=== PATIENT | male | born 1935 | race Caucasian/White ===

== ENCOUNTER 2020-09-16 13:16 | Inpatient (IN) | payer MEDICARE ==
[2020-09-16] MEDS ORDERED: SODIUM CHLORIDE 0.9% 1,000 ML IV STA (13:34)
--- NOTE | 2020-09-16 13:36 | ED ---
General Adult HPI - General Chief complaint: Altered Mental Status Stated complaint: weakness Time Seen by Provider: 09/16/20 13:22 Source: patient, EMS, RN notes reviewed Mode of arrival: EMS Limitations: altered mental status, physical limitation - History of Present Illness Initial comments: Patient is a pleasant 84-year-old male presenting to the emergency department by EMS. Patient is a very poor historian and not quite clear why he is here. Yevgeniy jang denies any complaints at this time. Patient states he did have chest discomfort earlier and this why they sent him in when questioned several times. Patient states is gone at this time. Patient did admit to some abdominal discomfort during exam however states this was not the discomfort that he had earlier. Nursing report states that patient did have some weakness and headache. Patient denies any weakness or headache. Patient states he has chronic bilateral leg weakness from back problems that are chronic and unchanged. - Related Data Home Medications Medication Instructions Recorded Confirmed Aspirin EC [Ecotrin Low Dose] 81 mg PO DAILY 09/28/16 09/28/16 Divalproex ER [Depakote ER] 1,500 mg PO HS 09/28/16 09/28/16 FLUoxetine HCL [PROzac] 20 mg PO DAILY 09/28/16 09/28/16 Lovastatin [Mevacor] 40 mg PO HS 09/28/16 09/28/16 Metoprolol Tartrate [Lopressor] 12.5 mg PO DAILY 09/28/16 09/28/16 Multivitamin [Men's Multi-Vitamin] 1 tab PO DAILY 09/28/16 09/28/16 Naproxen 500 mg PO BID PRN 09/28/16 09/28/16 Allergies Allergy/AdvReac Type Severity Reaction Status Date / Time No Known Allergies Allergy Verified 09/28/16 15:46 Review of Systems ROS Statement: Those systems with pertinent positive or pertinent negative responses have been documented in the HPI. ROS Other: All systems not noted in ROS Statement are negative. Constitutional: Denies: fever Eyes: Denies: eye pain ENT: Denies: ear pain Respiratory: Denies: cough Cardiovascular: Reports: as per HPI, chest pain Endocrine: Denies: fatigue Gastrointestinal: Reports: as per HPI Genitourinary: Denies: dysuria Musculoskeletal: Reports: as per HPI Skin: Denies: rash Neurological: Reports: as per HPI Past Medical History Past Medical History: Chest Pain / Angina, Hyperlipidemia, Hypertension, Myocardial Infarction (NV), Mitral Valve Prolapse (MVP) History of Any Multi-Drug Resistant Organisms: None Reported Past Surgical History: Orthopedic Surgery Additional Past Surgical History / Comment(s): splenectomy, knee replacement Past Psychological History: No Psychological Hx Reported Past Alcohol Use History: None Reported Past Drug Use History: None Reported General Exam Limitations: altered mental status, physical limitation General appearance: alert, in no apparent distress Head exam: Present: atraumatic Eye exam: Present: normal appearance, PERRL, EOMI ENT exam: Present: normal oropharynx Neck exam: Present: normal inspection Respiratory exam: Present: normal lung sounds bilaterally Cardiovascular Exam: Present: regular rate, irregular rhythm Expanded Peripheral pulses: 2+: Radial (R), Radial (L), Dorsalis Pedis (R), Dorsalis Pedis (L) GI/Abdominal exam: Present: soft, tenderness (Moderate left upper and left lower quadrant tenderness), normal bowel sounds. Absent: distended, guarding, rebound, rigid, pulsatile mass Extremities exam: Present: normal inspection Neurological exam: Present: alert Expanded Neurological exam: Present: protecting the airway Speech: Present: fluid speech Motor strength exam: RUE: 5, LUE: 5, RLE: 3 (States chronic, good strength with plantar and dorsiflexion of the feet), LLE: 3 (States chronic, good strength with plantar and dorsiflexion of the feet) Eye Response: (4) open spontaneously Motor Response: (6) obeys commands Verbal Response: (4) confused conversation Psychiatric exam: Present: normal affect, normal mood Skin exam: Present: normal color Course Vital Signs 09/16/20 09/16/20 09/16/20 13:19 13:31 15:34 Temperature 98.3 F Pulse Rate 61 72 72 Respiratory 18 18 Rate Blood Pressure 128/75 131/85 O2 Sat by Pulse 92 L 97 96 Oximetry EKG Findings - EKG Comments: EKG Findings:: A. fib with rate of 71. QRS 110. QT 380. QTC 412. Normal axis. Normal QRS. No acute ST change. Medical Decision Making - Medical Decision Making Patient reevaluated and updated. Case discussed with Dr. Yeh, who will admit covering for Dr. Patton - Lab Data Result diagrams: 09/16/20 13:43 09/16/20 13:43 Lab Results 09/16/20 09/16/20 09/16/20 Range/Units 13:43 13:43 13:43 WBC 8.0 (3.8-10.6) k/uL RBC 4.32 (4.30-5.90) m/uL Hgb 13.3 (13.0-17.5) gm/dL Hct 41.2 (39.0-53.0) % MCV 95.5 (80.0-100.0) fL MCH 30.8 (25.0-35.0) pg MCHC 32.3 (31.0-37.0) g/dL RDW 15.1 (11.5-15.5) % Plt Count 348 (150-450) k/uL MPV 7.1 Neutrophils % 73 % Lymphocytes % 14 % Monocytes % 9 % Eosinophils % 1 % Basophils % 1 % Neutrophils # 5.8 (1.3-7.7) k/uL Lymphocytes # 1.1 (1.0-4.8) k/uL Monocytes # 0.7 (0-1.0) k/uL Eosinophils # 0.1 (0-0.7) k/uL Basophils # 0.1 (0-0.2) k/uL PT 12.7 H (9.0-12.0) sec INR 1.3 H (<1.2) APTT 22.4 (22.0-30.0) sec Sodium 131 L (137-145) mmol/L Potassium 5.9 H (3.5-5.1) mmol/L Chloride 98 (98-107) mmol/L Carbon Dioxide 27 (22-30) mmol/L Anion Gap 6 mmol/L BUN 58 H (9-20) mg/dL Creatinine 1.63 H (0.66-1.25) mg/dL Est GFR (CKD-EPI)AfAm 44 (>60 ml/min/1.73 sqM) Est GFR (CKD-EPI)NonAf 38 (>60 ml/min/1.73 sqM) Glucose 104 H (74-99) mg/dL Calcium 9.6 (8.4-10.2) mg/dL Total Bilirubin 1.0 (0.2-1.3) mg/dL AST 46 (17-59) U/L ALT 22 (4-49) U/L Alkaline Phosphatase 88 (38-126) U/L Creatine Kinase 319 H (55-170) U/L Troponin I (0.000-0.034) ng/mL Total Protein 7.7 (6.3-8.2) g/dL Albumin 3.7 (3.5-5.0) g/dL Amylase 67 (30-110) U/L Lipase 146 (23-300) U/L Urine Color Urine Appearance (Clear) Urine pH (5.0-8.0) Ur Specific [place] (1.001-1.035) Urine Protein (Negative) Urine Glucose (UA) (Negative) Urine Ketones (Negative) Urine Blood (Negative) Urine Nitrite (Negative) Urine Bilirubin (Negative) Urine Urobilinogen (<2.0) mg/dL Ur Leukocyte Esterase (Negative) Urine WBC (0-5) /hpf Urine Bacteria (None) /hpf Urine Mucus (None) /hpf Digoxin ng/mL Valproic Acid ug/mL 09/16/20 09/16/20 09/16/20 Range/Units 13:43 13:43 13:52 WBC (3.8-10.6) k/uL RBC (4.30-5.90) m/uL Hgb (13.0-17.5) gm/dL Hct (39.0-53.0) % MCV (80.0-100.0) fL MCH (25.0-35.0) pg MCHC (31.0-37.0) g/dL RDW (11.5-15.5) % Plt Count (150-450) k/uL MPV Neutrophils % % Lymphocytes % % Monocytes % % Eosinophils % % Basophils % % Neutrophils # (1.3-7.7) k/uL Lymphocytes # (1.0-4.8) k/uL Monocytes # (0-1.0) k/uL Eosinophils # (0-0.7) k/uL Basophils # (0-0.2) k/uL PT (9.0-12.0) sec INR (<1.2) APTT (22.0-30.0) sec Sodium (137-145) mmol/L Potassium (3.5-5.1) mmol/L Chloride (98-107) mmol/L Carbon Dioxide (22-30) mmol/L Anion Gap mmol/L BUN (9-20) mg/dL Creatinine (0.66-1.25) mg/dL Est GFR (CKD-EPI)AfAm (>60 ml/min/1.73 sqM) Est GFR (CKD-EPI)NonAf (>60 ml/min/1.73 sqM) Glucose (74-99) mg/dL Calcium (8.4-10.2) mg/dL Total Bilirubin (0.2-1.3) mg/dL AST (17-59) U/L ALT (4-49) U/L Alkaline Phosphatase (38-126) U/L Creatine Kinase (55-170) U/L Troponin I 0.022 (0.000-0.034) ng/mL Total Protein (6.3-8.2) g/dL Albumin (3.5-5.0) g/dL Amylase (30-110) U/L Lipase (23-300) U/L Urine Color Light Yellow Urine Appearance Clear (Clear) Urine pH 6.0 (5.0-8.0) Ur Specific [place] 1.010 (1.001-1.035) Urine Protein Negative (Negative) Urine Glucose (UA) Negative (Negative) Urine Ketones Negative (Negative) Urine Blood Negative (Negative) Urine Nitrite Negative (Negative) Urine Bilirubin Negative (Negative) Urine Urobilinogen <2.0 (<2.0) mg/dL Ur Leukocyte Esterase Small H (Negative) Urine WBC 6 H (0-5) /hpf Urine Bacteria Rare H (None) /hpf Urine Mucus Rare H (None) /hpf Digoxin 1.5 ng/mL Valproic Acid <10.0 ug/mL - Radiology Data Radiology results: report reviewed (Computed tomography scan abdomen and pelvis does show colonic and rectal fecal stasis. Nonobstructive pattern. Her catheter with concentric wall thickening. Otherwise no acute findings. 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 CT brain shows) Disposition Clinical Impression: Dehydration, Chest pain Disposition: ADMITTED IP TO THIS HOSP Is patient prescribed a controlled substance at d/c from ED?: No Referrals: Cain Patton MD [Primary Care Provider] - 1-2 days Decision Time: 16:04
[2020-09-16 13:58] LABS: Basophils # (A) 0.1 k/uL (0-0.2); Basophils % (A) 1 %; Eosinophils # (A) 0.1 k/uL (0-0.7); Eosinophils % (A) 1 %; HCT 41.2 % (39.0-53.0); HGB 13.3 gm/dL (13.0-17.5); Lymphocytes # (A) 1.1 k/uL (1.0-4.8); Lymphocytes % (A) 14 %; MCH 30.8 pg (25.0-35.0); MCHC 32.3 g/dL (31.0-37.0); MCV 95.5 fL (80.0-100.0); Mean Platelet Volume 7.1; Monocytes # (A) 0.7 k/uL (0-1.0); Monocytes % (A) 9 %; Neutrophils # (A) 5.8 k/uL (1.3-7.7); Neutrophils % (A) 73 %; Platelet Count 348 k/uL (150-450); RBC 4.32 m/uL (4.30-5.90); RDW 15.1 % (11.5-15.5)
[2020-09-16 14:10] LABS: Albumin 3.7 g/dL (3.5-5.0); Calcium 9.6 mg/dL (8.4-10.2); INR 1.3 (<1.2); Partial Thromboplastin Time 22.4 sec (22.0-30.0); Prothrombin Time 12.7 sec (9.0-12.0); Total Protein 7.7 g/dL (6.3-8.2)
[2020-09-16 14:13] LABS: Potassium 5.9 mmol/L (3.5-5.1)
[2020-09-16 14:14] LABS: Appearance,Urine Clear (Clear); Bacteria,Urine Rare /hpf; Bilirubin,Urine Negative (Negative); Blood,Urine Negative (Negative); Color,Urine Light Yellow; Glucose,Urine (UA) Negative (Negative); Ketones,Urine Negative (Negative); Leukocyte Esterase,Urine Small (Negative); Mucus,Urine Rare /hpf; Nitrite,Urine Negative (Negative); Protein,Urine Negative (Negative); Urobilinogen,Urine <2.0 mg/dL (<2.0); WBC,Urine 6 /hpf (0-5)
[2020-09-16 14:41] LABS: Digoxin 1.5 ng/mL
[2020-09-16 14:42] LABS: Valproic Acid (Depakene) <10.0 ug/mL
--- NOTE | 2020-09-16 15:21 | CT ---
EXAMINATION TYPE: CT brain wo con DATE OF EXAM: 09/16/2020 HISTORY: Weakness and pain. CT DLP: 1231.4 mGycm. Automated Exposure Control for Dose Reduction was Utilized. TECHNIQUE: CT scan of the head is performed without contrast. COMPARISON: None. FINDINGS: There is no acute intracranial hemorrhage or midline shift identified. There is diffuse v entricular and sulcal prominence consistent with diffuse age-related cerebral atrophy. There is low- attenuation in the periventricular white matter consistent with chronic small vessel ischemic change. Nasal septum deviated to right of midline. Evidence of prior right-sided paranasal sinus surgery as retention cysts or polyps with mucosal thickening in ethmoid sinuses bilaterally. Vascular calcificat ion distal internal carotid arteries. IMPRESSION: No acute intracranial hemorrhage or midline shift. There is moderate to borderline adva nced diffuse age-related cerebral atrophy and mild to moderate chronic small vessel ischemic change n oted.
--- NOTE | 2020-09-16 15:35 | CT ---
EXAMINATION TYPE: CT abdomen pelvis wo con DATE OF EXAM: 09/16/2020 HISTORY: Weakness and pain. CT DLP: 618.2 mGycm. Automated Exposure Control for Dose Reduction was Utilized. TECHNIQUE: CT scan of the abdomen and pelvis is performed without oral or IV contrast. COMPARISON: CT abdomen and pelvis September 28, 2016 FINDINGS: Within the limitations of a non-contrast study, the following observations are made. LUNG BASES: Moderate to severe left atrial dilatation is present. Calcification or surgical change at level of mitral valve redemonstrated. Mild cardiomegaly. Coronary artery calcification again seen. P ectus deformity redemonstrated. LIVER/GB: Punctate 1 to 2 mm calcifications centrally in the liver on coronal image 49 noted unchange d from prior study. PANCREAS: No significant abnormality is seen. SPLEEN: Normal spleen not seen. Stable small partially calcified left upper quadrant lesion image 22 could reflect residual splenosis. ADRENALS: No significant abnormality is seen. KIDNEYS: No renal stones or hydronephrosis is present bilaterally. Suprapubic catheter noted in bladd er with moderate concentric wall thickening on current study. BOWEL: Moderate amount of fecal prominence in the right and transverse colon. Prominent diverticula i n the left and sigmoid colon. No CT evidence for acute diverticulitis. No suspicious small or large b owel dilatation. Moderate focal fecal prominence in the rectum. GENITAL ORGANS: Prostate gland upper limits of normal in size. LYMPH NODES: No greater than 1cm abdominal or pelvic lymph nodes are appreciated. OSSEOUS STRUCTURES: Moderate axial joint space loss and spurring of both hips. Multilevel interspace narrowing and spurring greatest at L2-L3 level left aspect with endplate sclerosis. OTHER: Atherosclerotic and aneurysmal aorta extending into iliac branch vessels. Interval progression . AAA measures up to 4.7 cm AP diameter image 46 up from 3.7 cm prior study. 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 Additional ectasia and aneurysmal change of the left-sided iliac artery with distal left common i liac artery measuring up to 3.0 cm transverse image 62. Stable small fat-containing bilateral inguinal hernia. IMPRESSION: Moderate proximal colonic and rectal fecal stasis. Overall nonobstructive bowel gas patte rn. New suprapubic Her catheter with moderate concentric wall thickening and bladder, cannot exclud e underlying acute sinusitis, correlate clinically. Otherwise no acute findings clearly seen. 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
[2020-09-16] MEDS ORDERED: NITROGLYCERIN SL TABS 0.4 MG TAB SUBLINGUAL PRN (16:04)
[2020-09-16] MEDS ORDERED: ASPIRIN 81 MG PO STA (16:04)
--- NOTE | 2020-09-16 16:59 | XR ---
EXAMINATION TYPE: XR chest 2V DATE OF EXAM: 09/16/2020 COMPARISON: 09/28/2016 HISTORY: Chest pain TECHNIQUE: FINDINGS: Heart is top normal in size. There is some diffuse bilateral pneumonia. This is predominant ly interstitial pneumonia. There are chest leads. There is no heart failure. There are no hilar rafael s. Mediastinum is normal. Bony thorax is intact. IMPRESSION: There is new bilateral diffuse pneumonia compared to old exam.
[2020-09-16] MEDS ORDERED: ACETAMINOPHEN TAB 500 MG TAB PO PRN (21:05)
[2020-09-16] MEDS ORDERED: MELATONIN 5 MG TABLET PO SCH (21:15)
[2020-09-16] MEDS ORDERED: WARFARIN 1 MG TAB PO SCH (21:15)
[2020-09-16] MEDS ORDERED: WARFARIN 2 MG TAB PO ONE (22:00)
[2020-09-16] MEDS: CYCLOBENZAPRINE 10 MG TAB PO SCH (22:30)
[2020-09-16] MEDS: LATANOPROST 0.005% OPHTH DROPS 2.5 ML BTL BOTH EYES SCH (22:30)
[2020-09-17 06:30] LABS: African American GFR (CKD) 70 (>60 ml/min/1.73 sqM); Anion Gap 3 mmol/L; Blood Urea Nitrogen 37 mg/dL (9-20); Calcium 9.4 mg/dL (8.4-10.2); Carbon Dioxide 31 mmol/L (22-30); Chloride 100 mmol/L (98-107); Cholesterol 208 mg/dL (<200); Glucose 94 mg/dL (74-99); HDL Cholesterol 39 mg/dL (40-60); LDL Cholesterol,Calculated 155 mg/dL (0-99); Non-African American GFR(CKD) 60 (>60 ml/min/1.73 sqM); Potassium 5.2 mmol/L (3.5-5.1); Sodium 134 mmol/L (137-145); Triglycerides 68 mg/dL (<150)
[2020-09-17] MEDS ORDERED: POTASSIUM CHLORIDE ER 20 MEQ TAB.ER PO SCH (07:30)
[2020-09-17] MEDS: CYCLOBENZAPRINE 10 MG TAB PO SCH ×3 (08:45→20:44)
[2020-09-17] MEDS: METOPROLOL TARTRATE 25 MG TAB PO SCH ×2 (08:47→20:44)
[2020-09-17] MEDS: MULTIVITAMINS, THERA 1 EACH TAB PO SCH (08:48)
[2020-09-17] MEDS: MAGNESIUM OXIDE 400 MG TAB PO SCH (08:48)
[2020-09-17] MEDS: PANTOPRAZOLE 40 MG TABLET PO SCH ×2 (08:49→20:44)
[2020-09-17] MEDS: TROSPIUM CHLORIDE 20 MG TABLET PO SCH ×2 (08:50→20:44)
[2020-09-17] MEDS: FLUoxetine HCL 10 MG CAP PO SCH ×2 (08:51→20:44)
[2020-09-17] MEDS: DILTIAZEM CD 180 MG CAP.ER.24H PO SCH (08:52)
[2020-09-17] MEDS ORDERED: FUROSEMIDE 40 MG TAB PO SCH (09:00)
[2020-09-17] MEDS ORDERED: MELOXICAM 7.5 MG TAB PO SCH (09:00)
[2020-09-17] MEDS ORDERED: ASPIRIN 325 MG TAB PO SCH (09:00)
[2020-09-17] MEDS ORDERED: lisinopriL 20 MG TAB PO SCH (09:00)
[2020-09-17] MEDS ORDERED: NON FORMULARY DRUG (Aspirin Ec 81 MG Tablet.Dr) PO SCH (09:00)
[2020-09-17 09:26] LABS: INR 1.28 (0.90-1.11); Prothrombin Time 13.6 sec (9.9-11.9)
[2020-09-17] MEDS: BUDESONIDE 1 MG/2 ML NEBU INHALATION SCH ×2 (10:10→21:40)
--- NOTE | 2020-09-17 10:43 | P.CRDCN ---
History of Present Illness History of present illness: HISTORY OF PRESENTING ILLNESS This is a pleasant 84-year-old male past medical history significant for abdominal and iliac aneurysms, dyslipidemia, hypertension, noncritical coronary artery disease and paroxysmal atrial fibrillation on Coumadin for thromboembolic protection. He follows in the office with Dr. Pulliam. We have been asked to see in consultation for chest pain. The patient himself is seen and examined sitting up on the edge of the bed in no acute distress. He is complaining of lower back discomfort. He is having memory lapses and is unable to tell his he came to the hospital. He does give brief history of being recently hospitalized however he is unsure of the year or why exactly he is at the hospital. We spoke with his Kate on the telephone along with his daughter who was over at the time. They state that he was discharged from [facility] on September 03 after being treated for pneumonia, A. fib and respiratory distress. They state he was intubated. Upon discharge he was given home oxygen and according to the family seemed to normal mentation for a couple of days. The daughter states after being home for a couple of days he started to seem more and more confused. In the last 48 hours he has not been eating or drinking and was becoming stubborn and obstinate with his family. The also states he has been complaining of a headache and clutching the right side of his head. She also feels as though he is overall generally weak but seemed to be more weak on the right side and she was having to help him walk. Visiting nurse was at the house and recommended hospitalization. EKG on arrival revealed atrial fibrillation with controlled ventricular rate. Chest x-ray reveals bilateral diffuse pneumonia. CT of the abdomen and pelvis reveals moderate proximal colonic and rectal fecal stasis, Her catheter with moderate concentric bladder wall thickening and worsening aneurysmal and atherosclerotic abdominal aorta extending into the iliac arteries bilaterally. CT of the brain is negative for acute intracranial hemorrhage or midline shift with moderate diffuse age-related cerebral atrophy and mild to moderate chronic small vessel ischemic changes. Laboratory data reviewed, CBC unremarkable, INR 1.2, sodium 134, potassium 5.2, creatinine on admission 1.63 down to 1.12 this morning, troponin negative 3, LDL 155 and HDL 39. Current daily cardiac medications include lisinopril 20 mg daily, digoxin 125 g daily, Lasix 40 mg twice a day, diltiazem 180 mg daily, Lopressor 25 mg twice a day, aspirin 81 mg daily, warfarin and daily potassium supplementation. Most recent echocardiogram o btained in the office November 2019 revealed impaired LV systolic function with ejection fraction 40-45%, mild concentric LVH, mildly dilated right ventricle, severely dilated left atrium, aortic valve is calcified with thickened leaflets, moderate to severe MR, severe mitral annual calcification and moderately thickened mitral leaflets. Telemetry tracings indicate intermittent episodes of rapid ventricular rates up to 150, currently 97. REVIEW OF SYSTEMS At the time of my exam: CONSTITUTIONAL: Denies fever or chills. CARDIOVASCULAR: Denies chest pain, shortness of breath, orthopnea, PND or palpitations. RESPIRATORY: Denies cough. GASTROINTESTINAL: Denies abdominal pain, diarrhea, constipation, nausea or vomiting. MUSCULOSKELETAL: Complains of lower back. NEUROLOGIC: Denies numbness, tingling or weakness. ENDOCRINE: Denies fatigue, weight change, polydipsia or polyurina. GENITOURINARY: Denies burning, hematuria or urgency with micturation. HEMATOLOGIC: Denies history of anemia or bleeding. PHYSICAL EXAMINATION Blood pressure 156/88 heart rate 81 afebrile and maintaining oxygen saturation on nasal cannula. CONSTITUTIONAL: No apparent distress. HEENT: Head is normocephalic. Pupils are equal, round. Sclerae anicteric. Mucous membranes of the mouth are moist. No JVD. No carotid bruit. CHEST EXAMINATION: Diminished bilaterally. No rales, wheezes or rhonchi. No chest wall tenderness is noted on palpation or with deep breathing. HEART EXAMINATION: Irregular rate and rhythm. S1, S2 heard. Systolic ejection murmur at the left sternal border, no gallops or rub. ABDOMEN: Soft, nontender. Positive bowel sounds. EXTREMITIES: 2+ peripheral pulses, no lower extremity edema and no calf tenderness. NEUROLOGIC EXAMINATION: Patient is awake, alert to self and place. ASSESSMENT Altered mental status Paroxysmal atrial fibrillation on coumadin Hyperkalemia Acute kidney injury Dyslipidemia Hypertension Lower back pain Suprapubic catheter Recent pneumonia requiring mechanical ventilation Iliac aneurysms bilaterally Abdominal aortic aneurysm Non-obstructive coronary artery disease, cath 2010 50% ostial LAD PLAN According to the family his altered mental status is new since previous hospitalization along with some right sided weakness. Recommend further neurology evaluation. Hold daily potassium supplementation secondary to hyperkalemia. For rate control, continue lopressor and diltiazem. Hold digoxin for now. Request records from previous hospitalization at [facility] for review. Continue warfarin for thromboembolic protection. In terms of his aneurysms, the CT films were reviewed by Dr. Darden and do no appear to amendable to endovascular repair, suggest outpatient vascular surgery evaluation when he is medically stable. Thank you kindly for this consultation. Nurse Practitioner note has been reviewed, I agree with a documented findings and plan of care. Patient was seen and examined. Past Medical History Past Medical History: Chest Pain / Angina, Hyperlipidemia, Hypertension, Myocardial Infarction ([place]), Mitral Valve Prolapse (MVP) Last Myocardial Infarction Date:: unknown History of Any Multi-Drug Resistant Organisms: None Reported Past Surgical History: Orthopedic Surgery Additional Past Surgical History / Comment(s): splenectomy, knee replacement Past Anesthesia/Blood Transfusion Reactions: No Reported Reaction Past Psychological History: No Psychological Hx Reported Smoking Status: Former smoker Past Drug Use History: None Reported Medications and Allergies Home Medications Medication Instructions Recorded Confirmed Type Aspirin EC [Ecotrin Low Dose] 81 mg PO DAILY 09/28/16 09/16/20 History Metoprolol Tartrate [Lopressor] 25 mg PO BID 09/28/16 09/16/20 History Multivitamin [Men's Multi-Vitamin] 1 tab PO DAILY 09/28/16 09/16/20 History Acetaminophen [Tylenol] 1,000 mg PO Q8H PRN 09/16/20 09/16/20 History Budesonide [Pulmicort] 1 mg INHALATION RT-BID@0700,1900 09/16/20 09/16/20 History Cyclobenzaprine HCl 5 mg PO TID 09/16/20 09/16/20 History Digoxin See Taper PO DAILY 09/16/20 09/16/20 History Diltiazem Cd [Cardizem CD] 180 mg PO DAILY 09/16/20 09/16/20 History FLUoxetine HCL [PROzac] 10 mg PO BID 09/16/20 09/16/20 History Furosemide [Lasix] 40 mg PO BID 09/16/20 09/16/20 History Ipratropium-Albuterol Nebulize 3 ml INHALATION RT-Q6H PRN 09/16/20 09/16/20 History [Duoneb 0.5 mg-3 mg/3 ml Soln] Latanoprost/Pf [Latanoprost 0.005% 1 drop BOTH EYES HS 09/16/20 09/16/20 History Eye Drop] Magnesium Oxide [Magox 400] 400 mg PO DAILY 09/16/20 09/16/20 History Melatonin 10.5 mg PO HS 09/16/20 09/16/20 History Meloxicam 15 mg PO DAILY 09/16/20 09/16/20 History Omeprazole [PriLOSEC] 20 mg PO BID 09/16/20 09/16/20 History Potassium Chloride [Klor-Con 20] 20 meq PO BID-W/MEALS 09/16/20 09/16/20 History Trospium Chloride 20 mg PO BID 09/16/20 09/16/20 History Warfarin [Coumadin] 1 mg PO TUTHSA 09/16/20 09/16/20 History Warfarin [Coumadin] 2 mg PO SUMOWEFR 09/16/20 09/16/20 History lisinopriL 20 mg PO DAILY 09/16/20 09/16/20 History Allergies Allergy/AdvReac Type Severity Reaction Status Date / Time hydromorphone [From Dilaudid] AdvReac Unknown Verified 09/16/20 17:04 shellfish derived [Shrimp] AdvReac Unknown Verified 09/16/20 17:04 Physical Exam Vitals: Vital Signs Temp Pulse Pulse Resp BP BP Pulse Ox 09/17/20 08:00 98.0 F 81 16 156/88 96 09/17/20 03:01 97.8 F 69 18 124/85 99 09/16/20 19:38 97.8 F 67 20 99/65 98 09/16/20 19:01 98.3 F 92 18 103/71 100 09/16/20 16:15 89 18 113/81 100 09/16/20 15:34 72 18 96 09/16/20 13:31 72 131/85 97 09/16/20 13:19 98.3 F 61 18 128/75 92 L Intake and Output 09/16/20 09/17/20 09/17/20 22:59 06:59 14:59 Output Total 1100 Balance -1100 Output: Urine 1100 Other: Voiding Method Indwelling Catheter Weight 74.843 kg Results 09/16/20 13:43 09/17/20 05:43 Cardiac Enzymes 09/16/20 09/16/20 09/16/20 Range/Units 13:43 13:43 17:25 AST 46 (17-59) U/L Troponin I 0.022 0.025 (0.000-0.034) ng/mL 09/16/20 Range/Units 20:02 AST (17-59) U/L Troponin I 0.026 (0.000-0.034) ng/mL Coagulation 09/16/20 09/17/20 Range/Units 13:43 05:43 PT 12.7 H 13.6 H (9.0-12.0) sec APTT 22.4 (22.0-30.0) sec Lipids 09/17/20 Range/Units 05:43 Triglycerides 68 (<150) mg/dL Cholesterol 208 H (<200) mg/dL HDL Cholesterol 39 L (40-60) mg/dL CBC 09/16/20 Range/Units 13:43 WBC 8.0 (3.8-10.6) k/uL RBC 4.32 (4.30-5.90) m/uL Hgb 13.3 (13.0-17.5) gm/dL Hct 41.2 (39.0-53.0) % Plt Count 348 (150-450) k/uL Comprehensive Metabolic Panel 09/16/20 09/17/20 Range/Units 13:43 05:43 Sodium 131 L 134 L (137-145) mmol/L Potassium 5.9 H 5.2 H (3.5-5.1) mmol/L Chloride 98 100 (98-107) mmol/L Carbon Dioxide 27 31 H (22-30) mmol/L BUN 58 H 37 H (9-20) mg/dL Creatinine 1.63 H 1.12 (0.66-1.25) mg/dL Glucose 104 H 94 (74-99) mg/dL Calcium 9.6 9.4 (8.4-10.2) mg/dL AST 46 (17-59) U/L ALT 22 (4-49) U/L Alkaline Phosphatase 88 (38-126) U/L Total Protein 7.7 (6.3-8.2) g/dL Albumin 3.7 (3.5-5.0) g/dL Current Medications Generic Name Dose Route Start Last Admin Trade Name Freq PRN Reason Stop Dose Admin Acetaminophen 1,000 mg 09/16/20 21:05 Acetaminophen Tab 500 Mg Tab PO Q8H PRN Moderate Pain Albuterol/Ipratropium 3 ml 09/16/20 21:05 Ipratropium-Albuterol 3 Ml Neb INHALATION RT-Q6H PRN Shortness Of Breath Aspirin 325 mg 09/17/20 09:00 09/17/20 08:47 Aspirin 325 Mg Tab PO 325 mg DAILY LUIS ALBERTO Administration Budesonide 1 mg 09/17/20 07:00 Budesonide 1 Mg/2 Ml Nebu INHALATION RT-BID@0700,1900 [facility] Cyclobenzaprine HCl 5 mg 09/16/20 22:00 09/17/20 08:45 Cyclobenzaprine 10 Mg Tab PO 5 mg TID LUIS ALBERTO Administration Diltiazem HCl 180 mg 09/17/20 09:00 09/17/20 08:52 Diltiazem Cd 180 Mg Cap.Er.24h PO 180 mg DAILY LUIS ALBERTO Administration Fluoxetine HCl 10 mg 09/17/20 09:00 09/17/20 08:51 Fluoxetine Hcl 10 Mg Cap PO 10 mg BID LUIS ALBERTO Administration Furosemide 40 mg 09/17/20 09:00 09/17/20 08:47 Furosemide 40 Mg Tab PO 40 mg BID LUIS ALBERTO Administration Latanoprost 1 drops 09/16/20 21:00 09/16/20 22:30 Latanoprost 0.005% Ophth Drops 2.5 Ml Btl BOTH EYES Not Given HS LUIS ALBERTO Lisinopril 20 mg 09/17/20 09:00 09/17/20 08:48 Lisinopril 20 Mg Tab PO 20 mg DAILY LUIS ALBERTO Administration Magnesium Oxide 400 mg 09/17/20 09:00 09/17/20 08:48 Magnesium Oxide 400 Mg Tab PO 400 mg DAILY LUIS ALBERTO Administration Melatonin 10 mg 09/16/20 21:15 09/16/20 22:30 Melatonin 5 Mg Tablet PO 10 mg HS [facility] Administration Meloxicam 15 mg 09/17/20 09:00 09/17/20 08:53 Meloxicam 7.5 Mg Tab PO 15 mg DAILY LUIS ALBERTO Administration Metoprolol Tartrate 25 mg 09/17/20 09:00 09/17/20 08:47 Metoprolol Tartrate 25 Mg Tab PO 25 mg BID LUIS ALBERTO Administration Miscellaneous Information 0 each 09/16/20 21:34 Warfarin Per Pharmacy MISCELLANE DIRECTED PRN ANTICOAG Multivitamins 1 each 09/17/20 09:00 09/17/20 08:48 Multivitamins, Thera 1 Each Tab PO 1 each DAILY LUIS ALBERTO Administration Nitroglycerin 0.4 mg 09/16/20 16:04 Nitroglycerin Sl Tabs 0.4 Mg Tab SUBLINGUAL Q5M PRN Chest Pain Pantoprazole Sodium 40 mg 09/17/20 09:00 09/17/20 08:49 Pantoprazole 40 Mg Tablet PO 40 mg BID LUIS ALBERTO Administration Potassium Chloride 20 meq 09/17/20 07:30 09/17/20 09:04 Potassium Chloride Er 20 Meq Tab.Er PO Not Given BID-W/MEALS LUIS ALBERTO Trospium 20 mg 09/17/20 09:00 09/17/20 08:50 Trospium Chloride 20 Mg Tablet PO 20 mg BID LUIS ALBERTO Administration Intake and Output 09/16/20 09/17/20 09/17/20 22:59 06:59 14:59 Output Total 1100 Balance -1100 Output: Urine 1100 Other: Voiding Method Indwelling Catheter Weight 74.843 kg 09/16/20 13:43 09/17/20 05:43
[2020-09-17] MEDS: IPRATROPIUM-ALBUTEROL 3 ML NEB INHALATION PRN (12:02)
[2020-09-17] MEDS ORDERED: WARFARIN 1 MG TAB PO SCH ×2 (17:00→21:09)
[2020-09-17] MEDS: SODIUM CHLORIDE 0.9% 1,000 ML IV SCH (17:02)
[2020-09-17] MEDS ORDERED: WARFARIN 2 MG TAB PO ONE (18:00)
[2020-09-17] MEDS: LATANOPROST 0.005% OPHTH DROPS 2.5 ML BTL BOTH EYES SCH (20:45)
[2020-09-17] MEDS ORDERED: MELATONIN 3 MG TABLET PO SCH (21:00)
--- NOTE | 2020-09-18 00:01 | P.HPIM ---
History of Present Illness H&P Date: 09/17/20 Chief Complaint: right-sided weakness History of presenting complaint: This is a 84-year-old patient of Dr. Cain Patton. As per the EMS report the caregiver said that patient for last 2 days has been feeling weak on the right side. Slight headache. Some dizziness. Patient does use 4 L of oxygen at home. Patient not a good historian. He thinks he may be feeling a bit numb on the right side. No change in swallowing. Speech doesn't appear to be different to him. No change in vision. Like stated patient not a good historian. Review of systems: GEN.: Tired EYES: None HEENT: None NECK: None RESPIRATORY: None CARDIOVASCULAR: None GASTROINTESTINAL: None GENITOURINARY: None MUSCULOSKELETAL: Joint pains LYMPHATICS: None HEMATOLOGICAL: None PSYCHIATRY: Forgetful NEUROLOGICAL: Possible right-sided weakness Past medical history to include: Hyperlipidemia, hypertension, myocardial infarction, mitral valve prolapse a splenectomy. Suprapubic catheter for a previous bladder problem Social history: Lives at home with his . No smoking Family history: Patient cannot tell Physical examination: VITAL SIGNS: 98.3, 61, 18, 128/75, 92% on 4 L GENERAL: BMI 29.2, sitting up in a chair, comfortable. EYES: Pupils equal. Conjunctiva normal. HEENT: External appearance of nose and ears normal, oral cavity grossly normal. NECK: JVD not raised; masses not palpable. HEART: First and second heart sounds are normal; no edema. LUNGS: Respiratory rate normal; decreased breath sounds. ABDOMEN: Soft, nontender, liver spleen not palpable, no masses palpable. PSYCH: [Patient can doubt the year the month this season but more difficulty with more detail questions l. NEUROLOGICAL: Cranial nerves grossly intact; no facial asymmetry, power and sensation grossly intact. LYMPHATICS: No lymph nodes palpable in the axilla and neck INVESTIGATIONS, reviewed in the clinical context: White count 8.0 hemoglobin 13.3 platelets 348 Potassium 5.9 bun 58 creatinine 1.63. Repeat 5.2 and creatinine 1.12 Troponin I 0.022, 0.025, 0.026 LDL 155 INR 1.28 Digoxin 1.5 valproic acid less than 10 EKG tracing personally reviewed by me-atrial fibrillation, rate 71 Chest x-ray film personally reviewed by me-bilateral scattered infiltrates Computed tomography scan of the abdomen pelvis-moderate proximal colonic and rectal fecal stasis. AAA-4.7 cm Computed tomography scan of the brain-nothing acute, chronic changes Assessment: -Patient was sent and off for the caregiver noticed that patient was weakness on the right side some headache some dizziness last 2 days. No obvious neurological deficit can be elicited here. Initial computed tomography scan of the brain is negative. -Acute kidney injury likely prerenal, improving with fluids. Note that the patient is on lisinopril meloxicam Lasix -Hyperkalemia from acute kidney injury -Abdominal aortic and is a 4.7 cm -Persistent atrial fibrillation rate controlled -Hyperlipidemia -Essential hypertension -Coronary artery disease with prior [place] -Moderate cognitive impairment likely from late-onset Alzheimer's dementia Plan: Patient be placed on aspirin, Lipitor. Neurology be consulted. Carotid Doppler. Home medications to be resumed. Continue Coumadin. Follow INR. DC meloxicam. Gentle hydration. Repeat labs in the morning. Hold all potassium supplements. Past Medical History Past Medical History: Chest Pain / Angina, Hyperlipidemia, Hypertension, Teto cardial Infarction ([place]), Mitral Valve Prolapse (MVP) Last Myocardial Infarction Date:: unknown History of Any Multi-Drug Resistant Organisms: None Reported Past Surgical History: Orthopedic Surgery Additional Past Surgical History / Comment(s): splenectomy, knee replacement Past Anesthesia/Blood Transfusion Reactions: No Reported Reaction Past Psychological History: No Psychological Hx Reported Smoking Status: Former smoker Past Drug Use History: None Reported Medications and Allergies Home Medications Medication Instructions Recorded Confirmed Type Aspirin EC [Ecotrin Low Dose] 81 mg PO DAILY 09/28/16 09/16/20 History Metoprolol Tartrate [Lopressor] 25 mg PO BID 09/28/16 09/16/20 History Multivitamin [Men's Multi-Vitamin] 1 tab PO DAILY 09/28/16 09/16/20 History Acetaminophen [Tylenol] 1,000 mg PO Q8H PRN 09/16/20 09/16/20 History Budesonide [Pulmicort] 1 mg INHALATION RT-BID@0700,1900 09/16/20 09/16/20 History Cyclobenzaprine HCl 5 mg PO TID 09/16/20 09/16/20 History Digoxin See Taper PO DAILY 09/16/20 09/16/20 History Diltiazem Cd [Cardizem CD] 180 mg PO DAILY 09/16/20 09/16/20 History FLUoxetine HCL [PROzac] 10 mg PO BID 09/16/20 09/16/20 History Furosemide [Lasix] 40 mg PO BID 09/16/20 09/16/20 History Ipratropium-Albuterol Nebulize 3 ml INHALATION RT-Q6H PRN 09/16/20 09/16/20 History [Duoneb 0.5 mg-3 mg/3 ml Soln] Latanoprost/Pf [Latanoprost 0.005% 1 drop BOTH EYES HS 09/16/20 09/16/20 History Eye Drop] Magnesium Oxide [Magox 400] 400 mg PO DAILY 09/16/20 09/16/20 History Melatonin 10.5 mg PO HS 09/16/20 09/16/20 History Meloxicam 15 mg PO DAILY 09/16/20 09/16/20 History Omeprazole [PriLOSEC] 20 mg PO BID 09/16/20 09/16/20 History Potassium Chloride [Klor-Con 20] 20 meq PO BID-W/MEALS 09/16/20 09/16/20 History Trospium Chloride 20 mg PO BID 09/16/20 09/16/20 History Warfarin [Coumadin] 1 mg PO TUTHSA 09/16/20 09/16/20 History Warfarin [Coumadin] 2 mg PO SUMOWEFR 09/16/20 09/16/20 History lisinopriL 20 mg PO DAILY 09/16/20 09/16/20 History Allergies Allergy/AdvReac Type Severity Reaction Status Date / Time hydromorphone [From Dilaudid] AdvReac Unknown Verified 09/16/20 17:04 shellfish derived [Shrimp] AdvReac Unknown Verified 09/16/20 17:04 Physical Exam Vitals: Vital Signs Temp Pulse Pulse Resp BP BP Pulse Ox 09/17/20 08:00 98.0 F 81 16 156/88 96 09/17/20 03:01 97.8 F 69 18 124/85 99 09/16/20 19:38 97.8 F 67 20 99/65 98 09/16/20 19:01 98.3 F 92 18 103/71 100 09/16/20 16:15 89 18 113/81 100 09/16/20 15:34 72 18 96 09/16/20 13:31 72 131/85 97 09/16/20 13:19 98.3 F 61 18 128/75 92 L Intake and Output 09/16/20 09/17/20 09/17/20 22:59 06:59 14:59 Output Total 1100 Balance -1100 Output: Urine 1100 Other: Voiding Method Indwelling Catheter # Bowel Movements 1 Weight 74.843 kg Results CBC & Chem 7: 09/16/20 13:43 09/17/20 05:43 Labs: Abnormal Lab Results - Last 24 Hours (Table) 09/16/20 09/16/20 09/16/20 Range/Units 13:43 13:43 13:52 PT 12.7 H (9.0-12.0) sec INR 1.3 H (<1.2) Sodium 131 L (137-145) mmol/L Potassium 5.9 H (3.5-5.1) mmol/L Carbon Dioxide (22-30) mmol/L BUN 58 H (9-20) mg/dL Creatinine 1.63 H (0.66-1.25) mg/dL Glucose 104 H (74-99) mg/dL Creatine Kinase 319 H (55-170) U/L Cholesterol (<200) mg/dL LDL Cholesterol, Calc (0-99) mg/dL HDL Cholesterol (40-60) mg/dL Ur Leukocyte Esterase Small H (Negative) Urine WBC 6 H (0-5) /hpf Urine Bacteria Rare H (None) /hpf Urine Mucus Rare H (None) /hpf 09/17/20 09/17/20 Range/Units 05:43 05:43 PT 13.6 H (9.0-12.0) sec INR 1.28 H (<1.2) Sodium 134 L (137-145) mmol/L Potassium 5.2 H (3.5-5.1) mmol/L Carbon Dioxide 31 H (22-30) mmol/L BUN 37 H (9-20) mg/dL Creatinine (0.66-1.25) mg/dL Glucose (74-99) mg/dL Creatine Kinase (55-170) U/L Cholesterol 208 H (<200) mg/dL LDL Cholesterol, Calc 155 H (0-99) mg/dL HDL Cholesterol 39 L (40-60) mg/dL Ur Leukocyte Esterase (Negative) Urine WBC (0-5) /hpf Urine Bacteria (None) /hpf Urine Mucus (None) /hpf Thrombosis Risk Factor Assmnt - Choose All That Apply Each Factor Represents 1 point: Obesity (BMI >25) Each Risk Factor Represents 3 Points: Age 75 years or older Thrombosis Risk Factor Assessment Total Risk Factor Score: 4 Thrombosis Risk Factor Assessment Level: Moderate Risk
[2020-09-18] MEDS: CYCLOBENZAPRINE 10 MG TAB PO SCH ×2 (07:43→16:46)
[2020-09-18] MEDS: PANTOPRAZOLE 40 MG TABLET PO SCH (07:43)
[2020-09-18] MEDS: MAGNESIUM OXIDE 400 MG TAB PO SCH (07:44)
[2020-09-18] MEDS: MULTIVITAMINS, THERA 1 EACH TAB PO SCH (07:44)
[2020-09-18] MEDS: METOPROLOL TARTRATE 25 MG TAB PO SCH (07:44)
[2020-09-18] MEDS: TROSPIUM CHLORIDE 20 MG TABLET PO SCH (07:45)
[2020-09-18] MEDS: DILTIAZEM CD 180 MG CAP.ER.24H PO SCH (07:45)
[2020-09-18] MEDS: FLUoxetine HCL 10 MG CAP PO SCH (07:45)
[2020-09-18] MEDS: SODIUM CHLORIDE 0.9% 1,000 ML IV SCH (07:46)
--- NOTE | 2020-09-18 08:29 | US ---
EXAMINATION TYPE: US carotid duplex BILAT DATE OF EXAM: 09/18/2020 COMPARISON: CT Brain CLINICAL HISTORY: possible TIA. Patient stated had DC. EXAM MEASUREMENTS: RIGHT: Peak Systolic Velocity (PSV) cm/sec ----- Right CCA: 57.3 ----- Right ICA: 49.0 ----- Right ECA: 70.3 ICA/CCA ratio: 0.9 RIGHT: End Diastole cm/sec ----- Right CCA: 15.5 ----- Right ICA: 13.5 ----- Right ECA: 12.9 LEFT: Peak Systolic Velocity (PSV) cm/sec ----- Left CCA: 54.0 ----- Left ICA: 47.9 ----- Left ECA: 72.6 ICA/CCA ratio: 0.9 LEFT: End Diastole cm/sec ----- Left CCA: 13.9 ----- Left ICA: 18.2 ----- Left ECA: 0.0 VERTEBRALS (direction of flow): Right Vertebral: Antegrade Left Vertebral: Antegrade Rhythm: Arrhythmia Mild mixed plaque seen at bilateral carotid bifurcation and PSV is wnl bilaterally. This appears to be worse on the left. Significant flow-limiting stenosis is not identified. IMPRESSION: 1. Atheromatous plaquing present greater on the left. Significant flow-limiting stenosis is not ident ified. Criteria for Assigning % of Stenosis / Diameter reduction (Estimation based on the indirect measurements of the internal carotid artery velocities (ICA PSV). 1. Normal (no stenosis)=ICA PSV < 125 cm/s: ratio < 2.0: ICA EDV<40 cm/s. 2. Less than 50% stenosis=ICA PSV < 125 cm/s: ratio < 2.0: ICA EDV<40 cm/s. 3. 50 to 69% stenosis=ICA PSV of 125 to 230 cm/s: ration 2.0 ? 4.0: ICA EDV 40-100 cm/s. 4. Greater than 70% stenosis to near occlusion= ICA PSV > 230 cm/s: ratio > 4.0: ICA EDV > 100 cm/s. 5. Near occlusion= ICA PSV velocities may be low or undetectable: variable ratio and ICA EDV. 6. Total occlusion=unable to detect flow.
[2020-09-18] MEDS: BUDESONIDE 1 MG/2 ML NEBU INHALATION SCH (08:30)
[2020-09-18] MEDS: IPRATROPIUM-ALBUTEROL 3 ML NEB INHALATION PRN (08:30)
[2020-09-18] MEDS ORDERED: ASPIRIN 81 MG PO SCH ×2 (09:00)
--- NOTE | 2020-09-18 10:38 | P.PN ---
Subjective HISTORY OF PRESENTING ILLNESS This is a pleasant 84-year-old male past medical history significant for abdominal and iliac aneurysms, dyslipidemia, hypertension, noncritical coronary artery disease and paroxysmal atrial fibrillation on Coumadin for thromboembolic protection. He follows in the office with Dr. Pulliam. We have been asked to see in consultation for chest pain. The patient himself is seen and examined sitting up on the edge of the bed in no acute distress. He is complaining of lower back discomfort. He is having memory lapses and is unable to tell his he came to the hospital. He does give brief history of being recently hospitalized however he is unsure of the year or why exactly he is at the hospital. We spoke with his Kate on the telephone along with his daughter who was over at the time. They state that he was discharged from [facility] on September 03 after being treated for pneumonia, A. fib and respiratory distress. They state he was intubated. Upon discharge he was given home oxygen and according to the family seemed to normal mentation for a couple of days. The daughter states after being home for a couple of days he started to seem more and more confused. In the last 48 hours he has not been eating or drinking and was becoming stubborn and obstinate with his family. The also states he has been complaining of a headache and clutching the right side of his head. She also feels as though he is overall generally weak but seemed to be more weak on the right side and she was having to help him walk. Visiting nurse was at the house and recommended hospitalization. EKG on arrival revealed atrial fibrillation with controlled ventricular rate. Chest x-ray reveals bilateral diffuse pneumonia. CT of the abdomen and pelvis reveals moderate proximal colonic and rectal fecal stasis, Her catheter with moderate concentric bladder wall thickening and worsening aneurysmal and atherosclerotic abdominal aorta extending into the iliac arteries bilaterally. CT of the brain is negative for acute intracranial hemorrhage or midline shift with moderate diffuse age-related cerebral atrophy and mild to moderate chronic small vessel ischemic changes. Laboratory data reviewed, CBC unremarkable, INR 1.2, sodium 134, potassium 5.2, creatinine on admission 1.63 down to 1.12 this morning, troponin negative 3, LDL 155 and HDL 39. Current daily cardiac medications include lisinopril 20 mg daily, digoxin 125 g daily, Lasix 40 mg twice a day, diltiazem 180 mg daily, Lopressor 25 mg twice a day, aspirin 81 mg daily, warfarin and daily potassium supplementation. Most recent echocardiogram obtained in the office November 2019 revealed impaired LV systolic function with ejection fraction 40-45%, mild concentric LVH, mildly dilated right ventricle, severely dilated left atrium, aortic valve is calcified with thickened leaflets, moderate to severe MR, severe mitral annual calcification and moderately thickened mitral leaflets. Telemetry tracings indicate intermittent episodes of rapid ventricular rates up to 150, currently 97. 09/18/2020 Patient was seen and examined sitting up in bed in no acute distress. He continues to be confused at baseline. He denies symptoms of chest pain or shortness of breath. Records were reviewed from previous hospitalization. It appears he was initially they're being treated for uncontrolled hypertension and headache. He underwent occipital nerve block. He ended up with metabolic encephalopathy, respiratory acidosis and septic shock. She was intubated for a short period of time. He also developed aspiration pneumonia. He was being treated for atrial fibrillation with rapid ventricular rate on IV Cardizem. Echocardiogram obtained on that admission revealed preserved LV systolic function with ejection fraction 50-55%. Blood pressure currently 142/86 with heart rate of 68 afebrile maintaining oxygen saturation on nasal cannula. PHYSICAL EXAMINATION CONSTITUTIONAL: No apparent distress. HEENT: Head is normocephalic. Pupils are equal, round. Sclerae anicteric. Mucous membranes of the mouth are moist. No JVD. No carotid bruit. CHEST EXAMINATION: Diminished bilaterally. No rales, wheezes or rhonchi. No chest wall tenderness is noted on palpation or with deep breathing. HEART EXAMINATION: Irregular rate and rhythm. S1, S2 heard. Systolic ejection murmur at the left sternal border, no gallops or rub. EXTREMITIES: 2+ peripheral pulses, no lower extremity edema and no calf tendern ess. ASSESSMENT Altered mental status Paroxysmal atrial fibrillation on coumadin Hyperkalemia Acute kidney injury Dyslipidemia Hypertension Lower back pain Suprapubic catheter Recent pneumonia requiring mechanical ventilation Iliac aneurysms bilaterally Abdominal aortic aneurysm Non-obstructive coronary artery disease, cath 2010 50% ostial LAD PLAN Ongoing medical management. No further cardiac concerns at this time. We will follow along as needed, please follow-up on discharge with Dr. Pulliam. Nurse Practitioner note has been reviewed, I agree with a documented findings and plan of care. Patient was seen and examined. Objective - Vital Signs Vital signs: Vital Signs Temp 98.6 F 09/18/20 07:40 Pulse 68 09/18/20 08:46 Resp 17 09/18/20 08:00 BP 142/86 09/18/20 07:40 Pulse Ox 99 09/18/20 08:33 Intake & Output 09/17/20 09/18/20 09/18/20 18:59 06:59 18:59 Intake Total 600 Output Total 1150 Balance 600 -1150 Intake: IV 600 Sodium Chloride 0.9% 1, 600 000 ml @ 75 mls/hr IV . [id number] STA Rx#:[id number] Output: Urine 1150 Other: Voiding Method Indwelling Catheter Indwelling Catheter # Bowel Movements 1 - Labs CBC & Chem 7: 09/16/20 13:43 09/17/20 05:43
[2020-09-18 12:05] LABS: African American GFR (CKD) 79.7 (60.0-200.0); Anion Gap 6.2 mmol/L (4.00-12.00); Calcium 9.5 mg/dL (8.7-10.3); Carbon Dioxide 27.8 mmol/L (21.6-31.8); Chol/HDL Ratio 4.95; LDL Cholesterol,Calculated 139.6 mg/dL (0.0-131.0); Non-African American GFR(CKD) 68.8 (60.0-200.0); VLDL Calculation 14.4 mg/dL (5.00-40.00)
[2020-09-18 12:06] LABS: INR 1.46 (0.90-1.11); Prothrombin Time 15.3 sec (9.9-11.9)
--- NOTE | 2020-09-18 12:14 | MR ---
EXAMINATION TYPE: MR brain wo con DATE OF EXAM: 09/18/2020 COMPARISON: 09/16/2020 CT brain HISTORY: Rt sided weakness CONTRAST: Performed utilizing 0 mL intravenous Gadavist gadolinium contrast. TECHNIQUE: Multiplanar, multiecho imaging on a 3.0 Shahla magnet is performed through the brain. Stud y is performed within 24 hours of arrival to the hospital. The craniovertebral junction is normal. The pituitary is normal. Susceptibility artifact in the lef t frontal region limits adjacent brain evaluation. Diffusion-weighted imaging is performed. No abnormal hyperintensity is present to suggest an acute i ntracranial infarct or acute ischemic change. Periventricular white matter hyperintensity is present on T2 and inversion recovery weighted sequence s likely related to microvascular ischemic change. A few subcortical white matter changes are evident within the frontal and parietal lobes. Findings are nonspecific but likely related to microvascular ischemic change. Ventricles and sulci are prominent for the patient age. Lateral ventricles appear prominent. Temporal horn dilatation is not evident however. IMPRESSIONS: 1. Atrophy with periventricular white matter ischemic type changes. 2. Susceptibility artifact left frontal region. 3. No acute intracranial process
[2020-09-18 15:26] VITALS: BP 106/61; PULSE 81; RESP 20; TEMP 97.9
[2020-09-18] MEDS ORDERED: WARFARIN 1 MG TAB PO SCH (17:00)
[2020-09-18] MEDS ORDERED: WARFARIN 2 MG TAB PO ONE (18:00)
--- NOTE | 2020-09-18 18:04 | P.CNNES ---
History of Present Illness Consult date: 09/18/20 Requesting physician: Nestor Yeh Reason for Consult: Leans to right History of Present Illness: Patient is a 84-year-old male came to the hospital on 09/16/2022 at 1:16 PM by ambulance for no clear reasons. It was reported patient has altered mental status and weakness. Patient tells me that he has heart problems, had [place] on 08/12/2020, and was admitted to [facility] for 20 days. Once he came out of the hospital he was feeling very weak. He walks slow. Neurology was consulted because it was noted that he is leaning to the right side. Patient denies any stroke symptoms, slurred speech facial droop, focal weakness, diplopia, headaches. Patient's vitals on arrival blood pressure 128/75, pulse rate [address] head showed no acute intracranial hemorrhage or midline shift. There is moderate to borderline advanced diffuse age-related cerebral atrophy and mild to moderate chronic small vessel ischemic change noted. CT abdomen and pelvis showed moderate proximal colonic and rectal fecal stasis. Overall nonobstructive bowel gas pattern. New suprapubic Her catheter with moderate concentric wall thickening of bladder, cannot exclude underlying acute cystitis, correlate clinically. Otherwise no acute findings clearly seen. Worsening aneurysmal and atherosclerotic abdominal aorta extending into ideal arteries bilaterally noted. The aneurysm of abdominal aorta measures 4.7 cm. EKG shows atrial fibrillation. Chest x-ray showed new bilateral diffuse pneumonia compared to old exam. Carotid Doppler showed atheromatous plaquing present greater on the left. Significant flow limiting stenosis is not identified. MRI of the brain revealed atrophy with periventricular white matter ischemic type changes. Susceptibility artifact left frontal region. Patient's blood test on arrival showed BUN 58, now improved to 32, creatinine was 1.63, now 1.0. Sodium was 131 on arrival now 135. Potassium was 5.9, now 5.0. Patient's cholesterol is 208, LDL 155, HDL 39 and triglycerides 68. Wing virus negative. Patient is on Coumadin for atrial fibrillation, most recent INR is 1.46 Review of Systems As mentioned in HPI in detail. All other review of systems completely unremarkable. Patient has suprapubic catheter. Patient has constipation. De nies nausea vomiting diarrhea. Past Medical History Past Medical History: Chest Pain / Angina, Hyperlipidemia, Hypertension, Myocardial Infarction ([place]), Mitral Valve Prolapse (MVP) Last Myocardial Infarction Date:: unknown History of Any Multi-Drug Resistant Organisms: None Reported Past Surgical History: Orthopedic Surgery Additional Past Surgical History / Comment(s): splenectomy, knee replacement Past Anesthesia/Blood Transfusion Reactions: No Reported Reaction Past Psychological History: No Psychological Hx Reported Smoking Status: Former smoker Past Drug Use History: None Reported Medications and Allergies Home Medications Medication Instructions Recorded Confirmed Type Aspirin EC [Ecotrin Low Dose] 81 mg PO DAILY 09/28/16 09/16/20 History Metoprolol Tartrate [Lopressor] 25 mg PO BID 09/28/16 09/16/20 History Multivitamin [Men's Multi-Vitamin] 1 tab PO DAILY 09/28/16 09/16/20 History Acetaminophen [Tylenol] 1,000 mg PO Q8H PRN 09/16/20 09/16/20 History Budesonide [Pulmicort] 1 mg INHALATION RT-BID@0700,1900 09/16/20 09/16/20 History Cyclobenzaprine HCl 5 mg PO TID 09/16/20 09/16/20 History Diltiazem Cd [Cardizem CD] 180 mg PO DAILY 09/16/20 09/16/20 History FLUoxetine HCL [PROzac] 10 mg PO BID 09/16/20 09/16/20 History Ipratropium-Albuterol Nebulize 3 ml INHALATION RT-Q6H PRN 09/16/20 09/16/20 History [Duoneb 0.5 mg-3 mg/3 ml Soln] Latanoprost/Pf [Latanoprost 0.005% 1 drop BOTH EYES HS 09/16/20 09/16/20 History Eye Drop] Magnesium Oxide [Magox 400] 400 mg PO DAILY 09/16/20 09/16/20 History Meloxicam 15 mg PO DAILY 09/16/20 09/16/20 History Omeprazole [PriLOSEC] 20 mg PO BID 09/16/20 09/16/20 History Trospium Chloride 20 mg PO BID 09/16/20 09/16/20 History Atorvastatin [Lipitor] 40 mg PO HS #30 tab 09/18/20 Rx Melatonin 6 mg PO HS #0 09/18/20 09/16/20 Rx Spironolactone [Aldactone] 25 mg PO DAILY #30 tablet 09/18/20 Rx Warfarin [Coumadin] 2 mg PO HS #0 09/18/20 09/16/20 Rx lisinopriL 20 mg PO HS #0 09/18/20 09/16/20 Rx Allergies Allergy/AdvReac Type Severity Reaction Status Date / Time hydromorphone [From Dilaudid] AdvReac Unknown Verified 09/16/20 17:04 shellfish derived [Shrimp] AdvReac Unknown Verified 09/16/20 17:04 Physical Examination - Vital Signs Vital Signs: Vital Signs Temp Pulse Pulse Resp BP Pulse Ox 09/18/20 08:46 68 09/18/20 08:33 68 99 09/18/20 08:00 17 09/18/20 07:40 98.6 F 83 17 142/86 97 09/18/20 00:54 97.4 F L 80 15 115/76 95 09/17/20 19:14 16 09/17/20 19:13 97.5 F L 110 H 16 117/75 97 Intake and Output 09/18/20 09/18/20 09/18/20 06:59 14:59 22:59 Output Total 1150 Balance -1150 Output: Urine 1150 Other: Voiding Method Indwelling Catheter On examination patient is an elderly male, in no distress. Patient is alert and awake, and fairly oriented. He knows that he is in [facility] in the hospital but does not know the name. He states it is September and the year is 2020. He knows name of the current and the next president. Knows his date of . Speech and language functions are normal. Attention and concentration, fund of knowledge is somewhat limited. On cranial examination pupils are round and reactive to light, visual hills are full to confrontation, extraocular muscles are intact with no nystagmus. Face is symmetric, tongue protrudes to the midline. Palatal elevation sensation normal, hearing and shoulder shrug normal. On muscle strength testing there is no pronator drift and the strength is normal in arms and legs distally and proximally reflexes are 1+ and plantars downgoing sensory touch is equal. No ataxia for [id number] testing, tone and bulk of muscles normal. Gait deferred. There is no obvious bruit, S1 and S2 audible, abdomen soft nontender, chest is clear. No peripheral edema. Results - Laboratory Findings CBC and BMP: 09/16/20 13:43 09/18/20 06:19 Abnormal Lab Findings: Abnormal Labs 09/16/20 09/16/20 09/16/20 13:43 13:43 13:52 PT 12.7 H INR 1.3 H Sodium 131 L Potassium 5.9 H Carbon Dioxide BUN 58 H Creatinine 1.63 H BUN/Creatinine Ratio Glucose 104 H Creatine Kinase 319 H Cholesterol LDL Cholesterol, Calc HDL Cholesterol Ur Leukocyte Esterase Small H Urine WBC 6 H Urine Bacteria Rare H Urine Mucus Rare H 09/17/20 09/17/20 09/18/20 05:43 05:43 06:19 PT 13.6 H 15.3 H INR 1.28 H 1.46 H Sodium 134 L Potassium 5.2 H Carbon Dioxide 31 H BUN 37 H Creatinine BUN/Creatinine Ratio Glucose Creatine Kinase Cholesterol 208 H LDL Cholesterol, Calc 155 H HDL Cholesterol 39 L Ur Leukocyte Esterase Urine WBC Urine Bacteria Urine Mucus 09/18/20 06:19 PT INR Sodium Potassium Carbon Dioxide BUN 32.0 H Creatinine BUN/Creatinine Ratio 32.00 H Glucose Creatine Kinase Cholesterol LDL Cholesterol, Calc 139.6 H HDL Cholesterol 39.0 L Ur Leukocyte Esterase Urine WBC Urine Bacteria Urine Mucus Assessment and Plan Assessment: * Altered mental status, likely due metabolic encephalopathy due to to dehydration, renal insufficiency, and electrolyte imbalance. Mentation now back to normal. * Renal insufficiency, improved * Hypertension * Atrial fibrillation on anticoagulation. * Dyslipidemia * Suprapubic catheter * Chronic low back pain * Abdominal aortic aneurysm Plan: * Patient's neurological examination is nonfocal. No signs of stroke or TIA. * Patient is on Coumadin, INR subtherapeutic 1.46. Target INR 2-3. Consider bridging until INR therapeutic. * Patient already has on workup performed, essentially negative. * Neurologically clear for discharge with the above recommendations.
--- NOTE | 2020-09-18 19:34 | P.DS ---
Providers Date of admission: 09/16/20 16:05 Expected date of discharge: 09/18/20 Attending physician: Nestor Yeh Consults: 09/16/20 16:05 Consult Physician Urgent Consulting Provider: Antonio Priest Consult Reason/Comments: cp Do you want consulting provider notified?: Yes 09/17/20 16:16 Consult Physician Routine Consulting Provider: Yany Martin Consult Reason/Comments: leans to right Do you want consulting provider notified?: Yes Primary care physician: Cain [facility] Course: Chief Complaint: right-sided weakness History of presenting complaint: This is a 84-year-old patient of Dr. Cain Patton. As per the EMS report the caregiver said that patient for last 2 days has been feeling weak on the right side. Slight headache. Some dizziness. Patient does use 4 L of oxygen home. Patient not a good historian. He thinks he may be feeling a bit numb on the right side. No change in swallowing. Speech doesn't appear to be different to him. No change in vision. Like stated patient not a good historian. Admitted with altered mental status. Seen by neurology. [place] to be metabolic encephalopathy. No stroke or TIA. Also felt to be acute kidney injury including ATN. Creatinine was 1.63. Did come down to 1.0. Medications adjusted. Today-doing well. Eating well. Care was discussed with Dr. Albert from neurology. Okay for [place] home.. Also spoke to child protective services social worker. Family would like the patient to come home. Discussion and discharge planning more than 35 minutes Consultation: Dr. Darden from cardiology Dr. Albert from neurology Physical examination: VITAL SIGNS: 97.9, 81, 20, 106/61, 91% room air GENERAL: BMI 29.2, sitting up in a chair, comfortable. EYES: Pupils equal. Conjunctiva normal. HEENT: External appearance of nose and ears normal, oral cavity grossly normal. NECK: JVD not raised; masses not palpable. HEART: First and second heart sounds are normal; no edema. LUNGS: Respiratory rate normal; decreased breath sounds. ABDOMEN: Soft, nontender, liver spleen not palpable, no masses palpable. PSYCH: [Patient can doubt the year the month this season but more difficulty with more detail questions l. NEUROLOGICAL: Cranial nerves grossly intact; no facial asymmetry, power and sensation grossly intact. INVESTIGATIONS, reviewed in the clinical context: September 18: Potassium 5 creatinine 1.0 LDL 139 Coronavirus P/Cr-not detected INR 1.46 White count 8.0 hemoglobin 13.3 platelets 348 Potassium 5.9 bun 58 creatinine 1.63. Repeat 5.2 and creatinine 1.12 Troponin I 0.022, 0.025, 0.026 LDL 155 INR 1.28 Digoxin 1.5 valproic acid less than 10 EKG tracing personally reviewed by me-atrial fibrillation, rate 71 Chest x-ray film personally reviewed by me-bilateral scattered infiltrates Computed tomography scan of the abdomen pelvis-moderate proximal colonic and rectal fecal stasis. AAA-4.7 cm Computed tomography scan of the brain-nothing acute, chronic changes Assessment: -Acute metabolic encephalopathy from acute kidney injury. -Acute kidney injury likely ATN and prerenal, improving with fluids. -Hyperkalemia from acute kidney injury-improved -Abdominal aortic aneurysm a 4.7 cm-follow with Dr. Jesus vascular -Persistent atrial fibrillation rate controlled -Hyperlipidemia -Essential hypertension -Coronary artery disease with prior [place] -Moderate cognitive impairment likely from late-onset Alzheimer's dementia Disposition: Home Patient Condition at Discharge: Stable Plan - Discharge Summary Discharge Rx Participant: No New Discharge Prescriptions: New Spironolactone [Aldactone] 25 mg PO DAILY #30 tablet Atorvastatin [Lipitor] 40 mg PO HS #30 tab Continue Multivitamin [Men's Multi-Vitamin] 1 tab PO DAILY Metoprolol Tartrate [Lopressor] 25 mg PO BID Aspirin EC [Ecotrin Low Dose] 81 mg PO DAILY Acetaminophen [Tylenol] 1,000 mg PO Q8H PRN PRN Reason: Moderate Pain Budesonide [Pulmicort] 1 mg INHALATION RT-BID@0700,1900 Diltiazem Cd [Cardizem CD] 180 mg PO DAILY Ipratropium-Albuterol Nebulize [Duoneb 0.5 mg-3 mg/3 ml Soln] 3 ml INHALATION RT-Q6H PRN PRN Reason: Shortness Of Breath Latanoprost/Pf [Latanoprost 0.005% Eye Drop] 1 drop BOTH EYES HS Magnesium Oxide [Magox 400] 400 mg PO DAILY Meloxicam 15 mg PO DAILY Omeprazole [PriLOSEC] 20 mg PO BID FLUoxetine HCL [PROzac] 10 mg PO BID Trospium Chloride 20 mg PO BID Cyclobenzaprine HCl 5 mg PO TID Changed Warfarin [Coumadin] 2 mg PO HS #0 lisinopriL 20 mg PO HS #0 Melatonin 6 mg PO HS #0 Discontinued Furosemide [Lasix] 40 mg PO BID Potassium Chloride [Klor-Con 20] 20 meq PO BID-W/MEALS Warfarin [Coumadin] 1 mg PO TUTHSA Digoxin See Taper PO DAILY Discharge Medication List Aspirin EC [Ecotrin Low Dose] 81 mg PO DAILY 09/28/16 [History] Metoprolol Tartrate [Lopressor] 25 mg PO BID 09/28/16 [History] Multivitamin [Men's Multi-Vitamin] 1 tab PO DAILY 09/28/16 [History] Acetaminophen [Tylenol] 1,000 mg PO Q8H PRN 09/16/20 [History] Budesonide [Pulmicort] 1 mg INHALATION RT-BID@0700,1900 09/16/20 [History] Cyclobenzaprine HCl 5 mg PO TID 09/16/20 [History] Diltiazem Cd [Cardizem CD] 180 mg PO DAILY 09/16/20 [History] FLUoxetine HCL [PROzac] 10 mg PO BID 09/16/20 [History] Ipratropium-Albuterol Nebulize [Duoneb 0.5 mg-3 mg/3 ml Soln] 3 ml INHALATION RT-Q6H PRN 09/16/20 [History] Latanoprost/Pf [Latanoprost 0.005% Eye Drop] 1 drop BOTH EYES HS 09/16/20 [History] Magnesium Oxide [Magox 400] 400 mg PO DAILY 09/16/20 [History] Meloxicam 15 mg PO DAILY 09/16/20 [History] Omeprazole [PriLOSEC] 20 mg PO BID 09/16/20 [History] Trospium Chloride 20 mg PO BID 09/16/20 [History] Atorvastatin [Lipitor] 40 mg PO HS #30 tab 09/18/20 [Rx] Melatonin 6 mg PO HS #0 09/18/20 [Rx] Spironolactone [Aldactone] 25 mg PO DAILY #30 tablet 09/18/20 [Rx] Warfarin [Coumadin] 2 mg PO HS #0 09/18/20 [Rx] lisinopriL 20 mg PO HS #0 09/18/20 [Rx] Follow up Appointment(s)/Referral(s): Niles Pulliam MD [STAFF PHYSICIAN] - 2 Weeks [facility], [NON-STAFF] - Cain Patton MD [Primary Care Provider] - 1-2 days Patient Instructions/Handouts: Chest Pain (DC), Dehydration (DC) Activity/Diet/Wound Care/Special Instructions: bmp/inr - 5 days lisinopril is not a new dose- timing changed Discharge Disposition: HOME WITH HOME HEALTH SERVICES
[2020-09-18] MEDS ORDERED: ATORVASTATIN 40 MG TAB PO SCH (21:00)
== END 2020-09-18 17:34 | disposition home health service (06) | DRG 682 ==
LOC: EC 13:16 → 4SSUR 16:05
PROVIDERS: ADMIT Hospitalist; ATTEND Hospitalist
DX: N17.0 Acute kidney failure with tubular necrosis (principal); G93.41 Metabolic encephalopathy; E87.2 Acidosis; I48.19 Other persistent atrial fibrillation; E78.5 Hyperlipidemia, unspecified; E86.0 Dehydration; E87.5 Hyperkalemia; F02.80 Dementia in other diseases classified elsewhere, unspecified severity, without behavioral disturbance, psychotic disturbance, mood disturbance, and anxiety; G30.1 Alzheimer's disease with late onset; G89.29 Other chronic pain; Z20.828 Contact with and (suspected) exposure to other viral communicable diseases; I10 Essential (primary) hypertension; I25.10 Atherosclerotic heart disease of native coronary artery without angina pectoris; I34.1 Nonrheumatic mitral (valve) prolapse; Z96.659 Presence of unspecified artificial knee joint; I71.4 Abdominal aortic aneurysm, without rupture; Z79.01 Long term (current) use of anticoagulants; Z79.1 Long term (current) use of non-steroidal anti-inflammatories (NSAID); Z79.82 Long term (current) use of aspirin; I25.2 Old myocardial infarction; Z79.899 Other long term (current) drug therapy; Z87.01 Personal history of pneumonia (recurrent); Z87.891 Personal history of nicotine dependence; Z90.81 Acquired absence of spleen
CPT/HCPCS: 36415; 70450; 70551; 71046; 74176; 80048; 80053; 80061; 80162; 80164; 81001; 82150; 82550; 83690; 84484; 85025; 85610; 85730; 87635; 93005; 93880; 94640; 94760; 96360; 96361; 99285

== ENCOUNTER 2020-10-05 13:32 | Observation (INO) | payer MEDICARE ==
[2020-10-05 14:34] LABS: Basophils # (A) 0.2 k/uL (0-0.2); Basophils % (A) 2 %; Eosinophils # (A) 0.4 k/uL (0-0.7); Eosinophils % (A) 5 %; HCT 40.3 % (39.0-53.0); HGB 13.4 gm/dL (13.0-17.5); Lymphocytes # (A) 2.1 k/uL (1.0-4.8); Lymphocytes % (A) 22 %; MCH 30.9 pg (25.0-35.0); MCHC 33.2 g/dL (31.0-37.0); MCV 93.1 fL (80.0-100.0); Mean Platelet Volume 7.4; Monocytes # (A) 0.6 k/uL (0-1.0); Monocytes % (A) 7 %; Neutrophils # (A) 5.9 k/uL (1.3-7.7); Neutrophils % (A) 63 %; Platelet Count 446 k/uL (150-450); RBC 4.33 m/uL (4.30-5.90); RDW 15.2 % (11.5-15.5); WBC 9.3 k/uL (3.8-10.6)
[2020-10-05] MEDS ORDERED: ACETAMINOPHEN TAB 325 MG TAB PO STA (14:39)
[2020-10-05 14:42] LABS: INR 1.2 (<1.2)
[2020-10-05 14:43] LABS: Prothrombin Time 12.2 sec (9.0-12.0)
--- NOTE | 2020-10-05 14:44 | XR ---
EXAMINATION TYPE: XR chest 2V DATE OF EXAM: 10/05/2020 COMPARISON: 09/16/2020 HISTORY: 84-year-old male dysrhythmia TECHNIQUE: AP and lateral views FINDINGS: Heart is mildly enlarged. Aorta and pulmonary vasculature within normal limits. Mild patchy interstit ial density on the right. No pleural effusion. IMPRESSION: Mild patchy interstitial density especially on the right. Correlate to exclude mild pulmonary vascula r congestion or atypical pneumonias.
[2020-10-05 14:45] LABS: Albumin 3.8 g/dL (3.5-5.0); Calcium 9.5 mg/dL (8.4-10.2); Magnesium 1.8 mg/dL (1.6-2.3); Potassium 5.4 mmol/L (3.5-5.1); Total Bilirubin 0.4 mg/dL (0.2-1.3); Total Protein 7.2 g/dL (6.3-8.2)
--- NOTE | 2020-10-05 14:58 | ED ---
Arrhythmia/Palpitations HPI - General Chief Complaint: Arrhythmia/Palpitations Stated Complaint: Afib Source: patient Mode of arrival: wheelchair Limitations: no limitations - History of Present Illness Initial Comments: Patient is an 84-year-old male with past medical history of A. fib, hypertension, hyperlipidemia who presents to the emergency department with reported palpitations. Patient reports that he awoke around 7 AM with palpitations. He does have a history of paroxysmal A. fib. He does take Coumadin and he was just placed on this 2 weeks ago. Also takes Lopressor. Patient is known to Dr. Priest. States that in the past month he was hospitalized at [facility] where he "flatlined". Patient denies any chest pain. Does admit to a headache. No visual changes. No neck pain. Denies shortness of breath. No fevers, chills or cough. No other alleviating, precipitating or modifying factors - Related Data Home Medications Medication Instructions Recorded Confirmed Aspirin EC [Ecotrin Low Dose] 81 mg PO DAILY 09/28/16 10/05/20 Metoprolol Tartrate [Lopressor] 25 mg PO BID 09/28/16 10/05/20 Multivitamin [Men's Multi-Vitamin] 1 tab PO DAILY 09/28/16 10/05/20 Acetaminophen [Tylenol] 1,000 mg PO Q8H PRN 09/16/20 10/05/20 Budesonide [Pulmicort] 1 mg INHALATION RT-BID@0700,1900 09/16/20 10/05/20 Diltiazem Cd [Cardizem CD] 180 mg PO DAILY 09/16/20 10/05/20 Ipratropium-Albuterol Nebulize 3 ml INHALATION RT-QID PRN 09/16/20 10/05/20 [Duoneb 0.5 mg-3 mg/3 ml Soln] Latanoprost/Pf [Latanoprost 0.005% 1 drop BOTH EYES HS 09/16/20 10/05/20 Eye Drop] Magnesium Oxide [Magox 400] 400 mg PO DAILY 09/16/20 10/05/20 Meloxicam 15 mg PO DAILY 09/16/20 10/05/20 Omeprazole [PriLOSEC] 20 mg PO BID 09/16/20 10/05/20 Trospium Chloride 20 mg PO BID 09/16/20 10/05/20 Atorvastatin [Lipitor] 40 mg PO HS 10/05/20 10/05/20 Cyclobenzaprine [Flexeril] 5 mg PO TID PRN 10/05/20 10/05/20 FLUoxetine HCL [PROzac] 10 mg PO BID 10/05/20 10/05/20 lisinopriL 20 mg PO HS 10/05/20 10/05/20 Previous Rx's Medication Instructions Recorded Melatonin 6 mg PO HS #0 09/18/20 Spironolactone [Aldactone] 25 mg PO DAILY #30 tablet 09/18/20 Warfarin [Coumadin] 2 mg PO HS #0 09/18/20 Allergies Allergy/AdvReac Type Severity Reaction Status Date / Time hydromorphone [From Dilaudid] AdvReac Unknown Verified 10/05/20 15:11 shellfish derived [Shrimp] AdvReac Unknown Verified 10/05/20 15:11 Review of Systems ROS Statement: Those systems with pertinent positive or pertinent negative responses have been documented in the HPI. ROS Other: All systems not noted in ROS Statement are negative. Past Medical History Past Medical History: Atrial Fibrillation, Chest Pain / Angina, Hyperlipidemia, Hypertension, Myocardial Infarction ([place]), Mitral Valve Prolapse (MVP) Last Myocardial Infarction Date:: unknown History of Any Multi-Drug Resistant Organisms: None Reported Past Surgical History: Orthopedic Surgery Additional Past Surgical History / Comment(s): splenectomy, knee replacement Past Anesthesia/Blood Transfusion Reactions: No Reported Reaction Past Psychological History: No Psychological Hx Reported Smoking Status: Former smoker Past Alcohol Use History: None Reported Past Drug Use History: None Reported General Exam Limitations: no limitations Course Vital Signs 10/05/20 10/05/20 13:36 15:03 Temperature 98.6 F Pulse Rate 122 H 61 Respiratory 18 18 Rate Blood Pressure 105/69 110/74 O2 Sat by Pulse 91 L 98 Oximetry EKG Findings - EKG Comments: EKG Findings:: EKG demonstrates A. fib with a rate of 80. QRS 100. QTC 449. No acute ST segment elevations or depressions Medical Decision Making - Medical Decision Making On arrival patient is placed into room 20. A thorough history and physical exam was performed. Lab restudies were conducted and the patient went for a chest x-ray as well as CT of his brain. Lab studies are reviewed. Patient is sub therapeutic at 1.2. Creatinine is 1.4 which is down from the patient's baseline of 1. Troponin is negative. Chest x-ray does demonstrate mild patchy interstitial densities especially on the right. CT of the patient's brain demonstrates no acute intracranial hemorrhage or midline shift. Moderate diffuse cerebral atrophy. Patient remains on the monitor worker and has a heart rate anywhere from 40 to 122. I did recommend hospital admission for which the patient did agree to. Spoke with Dr. Yeh who accept admission. The patient is awaiting a bed on the floor - Lab Data Result diagrams: 10/05/20 14:22 10/05/20 14:22 Lab Results 10/05/20 10/05/20 10/05/20 Range/Units 14:22 14:22 14:22 WBC 9.3 (3.8-10.6) k/uL RBC 4.33 (4.30-5.90) m/uL Hgb 13.4 (13.0-17.5) gm/dL Hct 40.3 (39.0-53.0) % MCV 93.1 (80.0-100.0) fL MCH 30.9 (25.0-35.0) pg MCHC 33.2 (31.0-37.0) g/dL RDW 15.2 (11.5-15.5) % Plt Count 446 (150-450) k/uL MPV 7.4 Neutrophils % 63 % Lymphocytes % 22 % Monocytes % 7 % Eosinophils % 5 % Basophils % 2 % Neutrophils # 5.9 (1.3-7.7) k/uL Lymphocytes # 2.1 (1.0-4.8) k/uL Monocytes # 0.6 (0-1.0) k/uL Eosinophils # 0.4 (0-0.7) k/uL Basophils # 0.2 (0-0.2) k/uL PT 12.2 H (9.0-12.0) sec INR 1.2 H (<1.2) APTT 25.0 (22.0-30.0) sec Sodium 132 L (137-145) mmol/L Potassium 5.4 H (3.5-5.1) mmol/L Chloride 100 (98-107) mmol/L Carbon Dioxide 24 (22-30) mmol/L Anion Gap 8 mmol/L BUN 34 H (9-20) mg/dL Creatinine 1.46 H (0.66-1.25) mg/dL Est GFR (CKD-EPI)AfAm 50 (>60 ml/min/1.73 sqM) Est GFR (CKD-EPI)NonAf 44 (>60 ml/min/1.73 sqM) Glucose 99 (74-99) mg/dL Calcium 9.5 (8.4-10.2) mg/dL Magnesium 1.8 (1.6-2.3) mg/dL Total Bilirubin 0.4 (0.2-1.3) mg/dL AST 25 (17-59) U/L ALT 14 (4-49) U/L Alkaline Phosphatase 87 (38-126) U/L Troponin I (0.000-0.034) ng/mL Total Protein 7.2 (6.3-8.2) g/dL Albumin 3.8 (3.5-5.0) g/dL TSH 1.310 (0.465-4.680) mIU/L 10/05/20 Range/Units 14:22 WBC (3.8-10.6) k/uL RBC (4.30-5.90) m/uL Hgb (13.0-17.5) gm/dL Hct (39.0-53.0) % MCV (80.0-100.0) fL MCH (25.0-35.0) pg MCHC (31.0-37.0) g/dL RDW (11.5-15.5) % Plt Count (150-450) k/uL MPV Neutrophils % % Lymphocytes % % Monocytes % % Eosinophils % % Basophils % % Neutrophils # (1.3-7.7) k/uL Lymphocytes # (1.0-4.8) k/uL Monocytes # (0-1.0) k/uL Eosinophils # (0-0.7) k/uL Basophils # (0-0.2) k/uL PT (9.0-12.0) sec INR (<1.2) APTT (22.0-30.0) sec Sodium (137-145) mmol/L Potassium (3.5-5.1) mmol/L Chloride (98-107) mmol/L Carbon Dioxide (22-30) mmol/L Anion Gap mmol/L BUN (9-20) mg/dL Creatinine (0.66-1.25) mg/dL Est GFR (CKD-EPI)AfAm (>60 ml/min/1.73 sqM) Est GFR (CKD-EPI)NonAf (>60 ml/min/1.73 sqM) Glucose (74-99) mg/dL Calcium (8.4-10.2) mg/dL Magnesium (1.6-2.3) mg/dL Total Bilirubin (0.2-1.3) mg/dL AST (17-59) U/L ALT (4-49) U/L Alkaline Phosphatase (38-126) U/L Troponin I <0.012 (0.000-0.034) ng/mL Total Protein (6.3-8.2) g/dL Albumin (3.5-5.0) g/dL TSH (0.465-4.680) mIU/L Disposition Clinical Impression: Atrial fibrillation, Palpitations, Subtherapeutic anticoagulation Disposition: ADMITTED IP TO THIS [facility] Condition: Stable Is patient prescribed a controlled substance at d/c from ED?: No Referrals: Cain Patton MD [Primary Care Provider] - 1-2 days Decision to Admit Reason: Admit from EC Decision Date: 10/05/20 Decision Time: 15:39
--- NOTE | 2020-10-05 15:09 | CT ---
EXAMINATION TYPE: CT brain wo con DATE OF EXAM: 10/05/2020 HISTORY: headache, on coumadin CT DLP: 1098.4 mGycm. Automated Exposure Control for Dose Reduction was Utilized. TECHNIQUE: CT scan of the head is performed without contrast. COMPARISON: CT brain September 16, 2020. FINDINGS: There is no acute intracranial hemorrhage or midline shift identified. There is diffuse v entricular and sulcal prominence consistent with diffuse age-related cerebral atrophy. Ventricular si ze is stable and somewhat prominent. There is low-attenuation in the periventricular white matter con sistent with chronic small vessel ischemic change. The globes are intact and the visualized sinuses are clear. Sclerosis surrounding the right maxillary sinus is redemonstrated IMPRESSION: No acute intracranial hemorrhage or midline shift. There is moderate diffuse cerebral a trophy and chronic small vessel ischemic change redemonstrated. No significant change from prior.
[2020-10-05] MEDS ORDERED: NALOXONE 0.4 MG/ML 1 ML VIAL IV PRN (15:39)
[2020-10-05] MEDS ORDERED: IPRATROPIUM-ALBUTEROL 3 ML NEB INHALATION PRN (15:41)
[2020-10-05] MEDS ORDERED: CYCLOBENZAPRINE 5 MG TAB PO PRN (15:41)
[2020-10-05] MEDS ORDERED: ACETAMINOPHEN TAB 500 MG TAB PO PRN (15:41)
[2020-10-05] MEDS ORDERED: WARFARIN 2 MG TAB PO ONE (18:00)
[2020-10-05] MEDS: PANTOPRAZOLE 40 MG TABLET PO SCH (18:34)
[2020-10-05] MEDS: BUDESONIDE 1 MG/2 ML NEBU INHALATION SCH (20:34)
[2020-10-05] MEDS ORDERED: lisinopriL 20 MG TAB PO SCH (21:00)
[2020-10-05] MEDS: ATORVASTATIN 40 MG TAB PO SCH (21:55)
[2020-10-05] MEDS: FLUoxetine HCL 10 MG CAP PO SCH (21:55)
[2020-10-05] MEDS: MELATONIN 3 MG TABLET PO SCH (21:56)
[2020-10-05] MEDS: TROSPIUM CHLORIDE 20 MG TABLET PO SCH (21:57)
[2020-10-05] MEDS: METOPROLOL TARTRATE 25 MG TAB PO SCH (21:57)
[2020-10-05] MEDS: LATANOPROST 0.005% OPHTH DROPS 2.5 ML BTL BOTH EYES SCH (21:59)
[2020-10-05] MEDS: ENOXAPARIN 80 MG/0.8 ML SYRINGE SQ SCH (22:00)
[2020-10-06 06:43] LABS: INR 1.3 (<1.2); Prothrombin Time 13.6 sec (9.0-12.0)
[2020-10-06 07:04] LABS: Basophils # (A) 0.1 k/uL (0-0.2); Basophils % (A) 1 %; Eosinophils # (A) 0.4 k/uL (0-0.7); Eosinophils % (A) 5 %; HGB 12.5 gm/dL (13.0-17.5); Lymphocytes # (A) 2.6 k/uL (1.0-4.8); Lymphocytes % (A) 29 %; MCH 30.9 pg (25.0-35.0); MCHC 32.8 g/dL (31.0-37.0); MCV 94.3 fL (80.0-100.0); Mean Platelet Volume 7.5; Monocytes # (A) 0.7 k/uL (0-1.0); Monocytes % (A) 8 %; Neutrophils # (A) 4.8 k/uL (1.3-7.7); Neutrophils % (A) 55 %; Platelet Count 358 k/uL (150-450); RBC 4.03 m/uL (4.30-5.90); RDW 15.2 % (11.5-15.5); WBC 8.8 k/uL (3.8-10.6)
[2020-10-06 07:12] LABS: Calcium 9.5 mg/dL (8.4-10.2); Potassium 5.1 mmol/L (3.5-5.1)
[2020-10-06] MEDS: BUDESONIDE 1 MG/2 ML NEBU INHALATION SCH ×2 (08:25→20:03)
[2020-10-06] MEDS ORDERED: MELOXICAM 7.5 MG TAB PO SCH (09:00)
[2020-10-06] MEDS ORDERED: SPIRONOLACTONE 25 MG TAB PO SCH (09:00)
[2020-10-06] MEDS: DILTIAZEM CD 180 MG CAP.ER.24H PO SCH ×2 (09:42→09:43)
[2020-10-06] MEDS: ENOXAPARIN 80 MG/0.8 ML SYRINGE SQ SCH ×2 (09:42→21:39)
[2020-10-06] MEDS: TROSPIUM CHLORIDE 20 MG TABLET PO SCH ×2 (09:43→21:40)
[2020-10-06] MEDS: FLUoxetine HCL 10 MG CAP PO SCH ×2 (09:43→21:39)
[2020-10-06] MEDS: ASPIRIN 81 MG PO SCH (09:43)
[2020-10-06] MEDS: MULTIVITAMINS, THERA 1 EACH TAB PO SCH (09:43)
[2020-10-06] MEDS: SODIUM CHLORIDE 0.9% 1,000 ML IV SCH ×2 (09:44→18:59)
[2020-10-06] MEDS: MAGNESIUM OXIDE 400 MG TAB PO SCH (09:44)
[2020-10-06] MEDS: PANTOPRAZOLE 40 MG TABLET PO SCH (09:44)
[2020-10-06] MEDS: METOPROLOL TARTRATE 25 MG TAB PO SCH ×2 (09:44→21:40)
--- NOTE | 2020-10-06 10:30 | P.CRDCN ---
History of Present Illness Consult date: 10/06/20 History of present illness: CHIEF COMPLAINT: Palpitations HISTORY OF PRESENT ILLNESS: This is a 84-year-old male with a past medical history significant for hypertension, hyperlipidemia, and atrial fibrillation on anticoagulation with Coumadin. Patient follows in the office with Dr. Pulliam. We have been asked to see the patient in consultation for atrial fib. Patient examined this morning at the bedside in the emergency room. Patient states he began having palpitations yesterday which prompted him to come to the emergency room for evaluation. He denies chest pain or pressure. He denies shortness of breath. Denies nausea or vomiting. Denies dizziness or lightheadedness. It is noted the patient was recently hospitalized at [facility] and September 2020 secondary to pneumonia and age of fibrillation. The patient was on mechanical ventilation at that time. The patient states he was "put back in to a normal rhythm" by Dr. Priest during that hospitalization. No records are available at this time for review. DIAGNOSTICS: EKG reveals atrial fibrillation with controlled ventricular rate Chest xray mild patchy interstitial density especially on the right. Correlate to exclude mild pulmonary vascular congestion or atypical pneumonia Laboratory data: W BC 8.8. Hemoglobin 12.5. Platelet count 358. INR 1.3. Sodium 132. Potassium 5.1. BUN 30. Creatinine 1.48. Troponin negative 3. TSH 1.310. Current home cardiac medications include lisinopril 20 mg daily, Coumadin 2 mg daily, Aldactone 25 mg daily, Cardizem 180 mg daily, metoprolol 25 mg twice a day, Lipitor 40 mg daily, and aspirin 81 mg daily REVIEW OF SYSTEMS: At the time of my exam: CONSTITUTIONAL: Denies fever or chills. HEENT: Denies blurred vision, vision changes, or eye pain. Denies hemoptysis CARDIOVASCULAR: Denies chest pain, orthopnea, PND or palpitations RESPIRATORY: No shortness of breath. GASTROINTESTINAL: Denies abdominal pain. Denies nausea or vomiting. HEMATOLOGIC: Denies bleeding disorders. GENITOURINARY: Denies any blood in urine. SKIN: Denies pruitis. Denies rash. PHYSICAL EXAM: VITAL SIGNS: Reviewed. GENERAL: Well-developed in no acute distress. HEENT: Head is normocephalic. Pupils are equal, round. Sclerae anicteric. Mucous membranes of the mouth are moist. Neck supple. No JVD or thyromegaly LUNGS: Respirations even and unlabored. Lungs diminished bilaterally HEART: Irregular rate and rhythm. S1 and S2 heard. Systolic murmur noted. ABDOMEN: Soft. Nondistended. Nontender. EXTREMITIES: Normal range of motion. No clubbing or cyanosis. Peripheral pulses intact. No lower extremity edema NEUROLOGIC: Awake and alert. Oriented x 3. ASSESSMENT: Palpitations Paroxysmal atrial fibrillation on anticoagulation with Coumadin Subtherapeutic INR Recent hospitalization secondary to pneumonia requiring mechanical ventilation Hypertension Hyperlipidemia PLAN: Resume home cardiac medications Continue telemetry monitoring. Patients heart rate is currently controlled in the 90s. Obtain 2D echo to assess cardiac structure and function Obtain records of recent hospitalization at [facility] for review Further recommendations pending patient course Nurse practitioner note has been reviewed by physician. Signing provider agrees with the documented findings, assessment, and plan of care. Past Medical History Past Medical History: Atrial Fibrillation, Chest Pain / Angina, Hyperlipidemia, Hypertension, Myocardial Infarction ([place]), Mitral Valve Prolapse (MVP) Last Myocardial Infarction Date:: unknown History of Any Multi-Drug Resistant Organisms: None Reported Past Surgical History: Orthopedic Surgery Additional Past Surgical History / Comment(s): splenectomy, knee replacement Past Anesthesia/Blood Transfusion Reactions: No Reported Reaction Past Psychological History: No Psychological Hx Reported Smoking Status: Former smoker Past Alcohol Use History: None Reported Past Drug Use History: None Reported Medications and Allergies Home Medications Medication Instructions Recorded Confirmed Type Aspirin EC [Ecotrin Low Dose] 81 mg PO DAILY 09/28/16 10/05/20 History Metoprolol Tartrate [Lopressor] 25 mg PO BID 09/28/16 10/05/20 History Multivitamin [Men's Multi-Vitamin] 1 tab PO DAILY 09/28/16 10/05/20 History Acetaminophen [Tylenol] 1,000 mg PO Q8H PRN 09/16/20 10/05/20 History Budesonide [Pulmicort] 1 mg INHALATION RT-BID@0700,1900 09/16/20 10/05/20 History Diltiazem Cd [Cardizem CD] 180 mg PO DAILY 09/16/20 10/05/20 History Ipratropium-Albuterol Nebulize 3 ml INHALATION RT-QID PRN 09/16/20 10/05/20 History [Duoneb 0.5 mg-3 mg/3 ml Soln] Latanoprost/Pf [Latanoprost 0.005% 1 drop BOTH EYES HS 09/16/20 10/05/20 History Eye Drop] Magnesium Oxide [Magox 400] 400 mg PO DAILY 09/16/20 10/05/20 History Meloxicam 15 mg PO DAILY 09/16/20 10/05/20 History Omeprazole [PriLOSEC] 20 mg PO BID 09/16/20 10/05/20 History Trospium Chloride 20 mg PO BID 09/16/20 10/05/20 History Melatonin 6 mg PO HS #0 09/18/20 10/05/20 Rx Spironolactone [Aldactone] 25 mg PO DAILY #30 tablet 09/18/20 10/05/20 Rx Warfarin [Coumadin] 2 mg PO HS #0 09/18/20 10/05/20 Rx Atorvastatin [Lipitor] 40 mg PO HS 10/05/20 10/05/20 History Cyclobenzaprine [Flexeril] 5 mg PO TID PRN 10/05/20 10/05/20 History FLUoxetine HCL [PROzac] 10 mg PO BID 10/05/20 10/05/20 History lisinopriL 20 mg PO HS 10/05/20 10/05/20 History Allergies Allergy/AdvReac Type Severity Reaction Status Date / Time hydromorphone [From Dilaudid] AdvReac Unknown Verified 10/05/20 15:11 shellfish derived [Shrimp] AdvReac Unknown Verified 10/05/20 15:11 Physical Exam Vitals: Vital Signs Temp Pulse Pulse Resp BP BP Pulse Ox 10/06/20 09:00 97.7 F 92 16 124/76 99 10/06/20 06:16 98.1 F 106 H 18 115/82 93 L 10/06/20 06:00 54 L 16 10/06/20 05:00 58 L 18 10/06/20 04:00 54 L 18 10/06/20 01:45 98.0 F 90 18 97/60 100 10/06/20 01:00 84 18 10/06/20 00:00 80 18 10/05/20 23:00 72 18 10/05/20 22:00 73 18 10/05/20 21:53 98.1 F 70 18 112/77 98 10/05/20 21:00 60 18 10/05/20 20:00 75 10/05/20 19:12 58 L 19 10/05/20 18:31 61 18 103/85 99 10/05/20 15:45 55 L 18 110/74 100 10/05/20 15:03 61 18 110/74 98 10/05/20 13:36 98.6 F 122 H 18 105/69 91 L Intake and Output 10/05/20 10/06/20 10/06/20 22:59 06:59 14:59 Other: # Voids 1 Results 10/06/20 06:33 10/06/20 06:33 Cardiac Enzymes 10/05/20 10/05/20 10/05/20 Range/Units 14:22 14:22 17:36 AST 25 (17-59) U/L Troponin I <0.012 <0.012 (0.000-0.034) ng/mL 10/05/20 Range/Units 20:15 AST (17-59) U/L Troponin I <0.012 (0.000-0.034) ng/mL Coagulation 10/05/20 10/06/20 Range/Units 14:22 06:22 PT 12.2 H 13.6 H (9.0-12.0) sec APTT 25.0 (22.0-30.0) sec CBC 10/05/20 10/06/20 Range/Units 14:22 06:33 WBC 9.3 8.8 (3.8-10.6) k/uL RBC 4.33 4.03 L (4.30-5.90) m/uL Hgb 13.4 12.5 L (13.0-17.5) gm/dL Hct 40.3 38.0 L (39.0-53.0) % Plt Count 446 358 (150-450) k/uL Comprehensive Metabolic Panel 10/05/20 10/06/20 Range/Units 14:22 06:33 Sodium 132 L 132 L (137-145) mmol/L Potassium 5.4 H 5.1 (3.5-5.1) mmol/L Chloride 100 100 (98-107) mmol/L Carbon Dioxide 24 28 (22-30) mmol/L BUN 34 H 30 H (9-20) mg/dL Creatinine 1.46 H 1.48 H (0.66-1.25) mg/dL Glucose 99 96 (74-99) mg/dL Calcium 9.5 9.5 (8.4-10.2) mg/dL AST 25 (17-59) U/L ALT 14 (4-49) U/L Alkaline Phosphatase 87 (38-126) U/L Total Protein 7.2 (6.3-8.2) g/dL Albumin 3.8 (3.5-5.0) g/dL Current Medications Generic Name Dose Route Start Last Admin Trade Name Freq PRN Reason Stop Dose Admin Acetaminophen 1,000 mg 10/05/20 15:41 Acetaminophen Tab 500 Mg Tab PO Q8H PRN Moderate Pain Albuterol/Ipratropium 3 ml 10/05/20 15:41 Ipratropium-Albuterol 3 Ml Neb INHALATION RT-QID PRN Shortness Of Breath Aspirin 81 mg 10/06/20 09:00 10/06/20 09:43 Aspirin 81 Mg PO 81 mg DAILY LUIS ALBERTO Administration Atorvastatin Calcium 40 mg 10/05/20 21:00 10/05/20 21:55 Atorvastatin 40 Mg Tab PO 40 mg HS LUIS ALBERTO Administration Budesonide 1 mg 10/05/20 19:00 10/06/20 08:25 Budesonide 1 Mg/2 Ml Nebu INHALATION Not Given RT-BID@0700,1900 LUIS ALBERTO Cyclobenzaprine HCl 5 mg 10/05/20 15:41 10/06/20 09:44 Cyclobenzaprine 5 Mg Tab PO 5 mg TID PRN Administration Muscle Spasm Diltiazem HCl 180 mg 10/06/20 09:00 10/06/20 09:43 Diltiazem Cd 180 Mg Cap.Er.24h PO 180 mg DAILY LUIS ALBERTO Administration Enoxaparin Sodium 80 mg 10/05/20 21:00 10/06/20 09:42 Enoxaparin 80 Mg/0.8 Ml Syringe SQ 80 mg BID LUIS ALBERTO Administration Fluoxetine HCl 10 mg 10/05/20 21:00 10/06/20 09:43 Fluoxetine Hcl 10 Mg Cap PO 10 mg BID LUIS ALBERTO Administration Sodium Chloride 1,000 mls @ 75 mls/hr 10/05/20 23:15 10/06/20 09:44 Saline 0.9% IV 75 mls/hr .[id number] LUIS ALBERTO Administration Latanoprost 1 drops 10/05/20 21:00 10/05/20 21:59 Latanoprost 0.005% Ophth Drops 2.5 Ml Btl BOTH EYES Not Given HS LUIS ALBERTO Magnesium Oxide 400 mg 10/06/20 09:00 10/06/20 09:44 Magnesium Oxide 400 Mg Tab PO 400 mg DAILY LUIS ALBERTO Administration Melatonin 6 mg 10/05/20 21:00 10/05/20 21:56 Melatonin 3 Mg Tablet PO 6 mg HS LUIS ALBERTO Administration Metoprolol Tartrate 25 mg 10/05/20 21:00 10/06/20 09:44 Metoprolol Tartrate 25 Mg Tab PO 25 mg BID LUIS ALBERTO Administration Miscellaneous Information 1 each 10/05/20 16:37 Warfarin Per Pharmacy MISCELLANE DIRECTED PRN Per Protocol Multivitamins 1 each 10/06/20 09:00 10/06/20 09:43 Multivitamins, Thera 1 Each Tab PO 1 each DAILY LUIS ALBERTO Administration Naloxone HCl 0.2 mg 10/05/20 15:39 Naloxone 0.4 Mg/Ml 1 Ml Vial IV Q2M PRN Opioid Reversal Pantoprazole Sodium 40 mg 10/05/20 16:15 10/06/20 09:44 Pantoprazole 40 Mg Tablet PO 40 mg [id number] LUIS ALBERTO Administration Trospium 20 mg 10/05/20 21:00 10/06/20 09:43 Trospium Chloride 20 Mg Tablet PO 20 mg BID LUIS ALBERTO Administration Intake and Output 10/05/20 10/06/20 10/06/20 22:59 06:59 14:59 Other: # Voids 1 10/06/20 06:33 10/06/20 06:33
[2020-10-06 13:46] VITALS: BMI 27.4
--- NOTE | 2020-10-06 17:28 | ECHOF ---
Referral Reason:LV function MEASUREMENTS -------- HEIGHT: 165.1 cm WEIGHT: 77.1 kg BP: IVSd: 1.3 cm (0.6 - 1.1) LVIDd: 4.3 cm (3.9 - 5.3) LVPWd: 1.2 cm (0.6 - 1.1) IVSs: 1.4 cm LVIDs: 4.0 cm LVPWs: 1.6 cm LA Diam: 4.6 cm (2.7 - 3.8) LAESV Index (A-L): 111.83 ml/m Ao Diam: 3.5 cm (2.0 - 3.7) AV Cusp: 1.7 cm (1.5 - 2.6) MV EXCURSION: 19.783 mm (> 18.000) MV EF SLOPE: 99 mm/s (70 - 150) EPSS: 0.7 cm FINDINGS -------- Atrial fibrillation. This was a technically good study. The left ventricular size is normal. Left ventricular wall thickness is normal. Overall left vent ricular systolic function is mild-moderately impaired with, an EF between 40 - 45 %. The right ventricle is normal in size. LA is severely dilated >40 ml/m2 The right atrial size is normal. There is mild aortic regurgitation. Moderate mitral annular calcification present. Severe mitral regurgitation is present. Mild tricuspid regurgitation present. There is no pulmonic regurgitation present. The aortic root size is normal. There is no pericardial effusion. CONCLUSIONS -------- 1. The left ventricular size is normal. 2. Left ventricular wall thickness is normal. 3. Overall left ventricular systolic function is mild-moderately impaired with, an EF between 40 - 45 %. 4. The right ventricle is normal in size. 5. LA is severely dilated >40 ml/m2 6. The right atrial size is normal. 7. There is mild aortic regurgitation. 8. Moderate mitral annular calcification present. 9. Severe mitral regurgitation is present. 10. Mild tricuspid regurgitation present. 11. There is no pulmonic regurgitation present. 12. The aortic root size is normal. 13. There is no pericardial effusion. AIRPLANE PILOT HELPER: Cynthia Aviles RDCS
[2020-10-06] MEDS ORDERED: WARFARIN 2 MG TAB PO ONE (18:00)
--- NOTE | 2020-10-06 21:26 | P.HPIM ---
History of Present Illness H&P Date: 10/06/20 Chief Complaint: Dizzy with palpitations History of presenting complaint: This is a 84-year-old patient of Dr. Cain Patton. Chronic stable medical conditions include abdominal aortic aneurysm 4.7 cm being followed by Dr. Park from vascular, hyperlipidemia, essential hypertension, coronary artery disease with prior AK cognitive impairment from late-onset Alzheimer's dementia. Patient now presents with 1 day history of significant palpitations. Short of breath. Unable to walk. Dizzy. Heart it is better control by the time he was in the ER. Cardiology was consulted. Apparently patient was cardioverted at [facility] recently. Denies any chest pain. Feeling better this morning. Review of systems: GEN.: Tired EYES: None HEENT: None NECK: None RESPIRATORY: None CARDIOVASCULAR: As above GASTROINTESTINAL: None GENITOURINARY: None MUSCULOSKELETAL: Joint pains LYMPHATICS: None HEMATOLOGICAL: None PSYCHIATRY: Forgetful NEUROLOGICAL: None Past medical history to include: Hyperlipidemia, hypertension, myocardial infarction, mitral valve prolapse a splenectomy. Suprapubic catheter for a previous bladder problem, atrial fibrillation, abdominal aortic aneurysm 4.7 cm being for upper Dr. Jesus Social history: Lives at home with his . No smoking Family history: Patient cannot tell Physical examination: VITAL SIGNS: 98.1, 106, 18, 115/82, 93% GENERAL: BMI 27.4, laying in bed, comfortable. EYES: Pupils equal. Conjunctiva normal. HEENT: External appearance of nose and ears normal, oral cavity grossly normal. NECK: JVD not raised; masses not palpable. HEART: Irregular heart sounds; no edema. LUNGS: Respiratory rate normal; decreased breath sounds. ABDOMEN: Soft, nontender, liver spleen not palpable, no masses palpable. PSYCH: Able tonsil simple questions. NEUROLOGICAL: Cranial nerves grossly intact; no facial asymmetry, power and sensation grossly intact. LYMPHATICS: No lymph nodes palpable in the axilla and neck INVESTIGATIONS, reviewed in the clinical context: White count 8.8 hemoglobin 12.5 platelets 358 potassium 5.1 bun 30 creatinine 1.48 EKG tracing personally reviewed by me-atrial fibrillation rate controlled Computed tomography scan of the brain-chronic changes with moderate diffuse cerebral atrophy Chest x-ray film-personally reviewed by me: some scattered interstitial density Assessment: -Persistent atrial fibrillation with an episode of rapid ventricle rate symptomatic uncontrolled -Chronic kidney disease stage III likely nephrosclerosis -Hyperkalemia , on presentation -Abdominal aortic aneurysm a 4.7 cm-follow with Dr. Jesus vascular -Hyperlipidemia -Essential hypertension -Coronary artery disease with prior AK -Moderate cognitive impairment likely from late-onset Alzheimer's dementia Plan: Gentle hydration. Because of hyperkalemia lisinopril has been held. Also meloxicam. Repeat labs in the morning. Cardiology consulted. Will request records from [facility]. Symptoms are better controlled this morning. Past Medical History Past Medical History: Atrial Fibrillation, Chest Pain / Angina, Hyperlipidemia, Hypertension, Myocardial Infarction (AK), Mitral Valve Prolapse (MVP) Last Myocardial Infarction Date:: unknown History of Any Multi-Drug Resistant Organisms: None Reported Past Surgical History: Orthopedic Surgery Additional Past Surgical History / Comment(s): splenectomy, knee replacement Past Anesthesia/Blood Transfusion Reactions: No Reported Reaction Past Psychological History: No Psychological Hx Reported Smoking Status: Former smoker Past Alcohol Use History: None Reported Past Drug Use History: None Reported Medications and Allergies Home Medications Medication Instructions Recorded Confirmed Type Aspirin EC [Ecotrin Low Dose] 81 mg PO DAILY 09/28/16 10/05/20 History Metoprolol Tartrate [Lopressor] 25 mg PO BID 09/28/16 10/05/20 History Multivitamin [Men's Multi-Vitamin] 1 tab PO DAILY 09/28/16 10/05/20 History Acetaminophen [Tylenol] 1,000 mg PO Q8H PRN 09/16/20 10/05/20 History Budesonide [Pulmicort] 1 mg INHALATION RT-BID@0700,1900 09/16/20 10/05/20 History Diltiazem Cd [Cardizem CD] 180 mg PO DAILY 09/16/20 10/05/20 History Ipratropium-Albuterol Nebulize 3 ml INHALATION RT-QID PRN 09/16/20 10/05/20 History [Duoneb 0.5 mg-3 mg/3 ml Soln] Latanoprost/Pf [Latanoprost 0.005% 1 drop BOTH EYES HS 09/16/20 10/05/20 History Eye Drop] Magnesium Oxide [Magox 400] 400 mg PO DAILY 09/16/20 10/05/20 History Meloxicam 15 mg PO DAILY 09/16/20 10/05/20 History Omeprazole [PriLOSEC] 20 mg PO BID 09/16/20 10/05/20 History Trospium Chloride 20 mg PO BID 09/16/20 10/05/20 History Melatonin 6 mg PO HS #0 09/18/20 10/05/20 Rx Spironolactone [Aldactone] 25 mg PO DAILY #30 tablet 09/18/20 10/05/20 Rx Warfarin [Coumadin] 2 mg PO HS #0 09/18/20 10/05/20 Rx Atorvastatin [Lipitor] 40 mg PO HS 10/05/20 10/05/20 History Cyclobenzaprine [Flexeril] 5 mg PO TID PRN 10/05/20 10/05/20 History FLUoxetine HCL [PROzac] 10 mg PO BID 10/05/20 10/05/20 History lisinopriL 20 mg PO HS 10/05/20 10/05/20 History Allergies Allergy/AdvReac Type Severity Reaction Status Date / Time hydromorphone [From Dilaudid] AdvReac Unknown Verified 10/05/20 15:11 shellfish derived [Shrimp] AdvReac Unknown Verified 10/05/20 15:11 Physical Exam Vitals: Vital Signs Temp Pulse Pulse Resp BP BP Pulse Ox 10/06/20 09:00 97.7 F 92 16 124/76 99 10/06/20 06:16 98.1 F 106 H 18 115/82 93 L 10/06/20 06:00 54 L 16 10/06/20 05:00 58 L 18 10/06/20 04:00 54 L 18 10/06/20 01:45 98.0 F 90 18 97/60 100 10/06/20 01:00 84 18 10/06/20 00:00 80 18 10/05/20 23:00 72 18 10/05/20 22:00 73 18 10/05/20 21:53 98.1 F 70 18 112/77 98 10/05/20 21:00 60 18 10/05/20 20:00 75 10/05/20 19:12 58 L 19 10/05/20 18:31 61 18 103/85 99 10/05/20 15:45 55 L 18 110/74 100 10/05/20 15:03 61 18 110/74 98 10/05/20 13:36 98.6 F 122 H 18 105/69 91 L Intake and Output 10/05/20 10/06/20 10/06/20 22:59 06:59 14:59 Other: # Voids 1 Results CBC & Chem 7: 10/06/20 06:33 10/06/20 06:33 Labs: Abnormal Lab Results - Last 24 Hours (Table) 10/05/20 10/05/20 10/06/20 Range/Units 14:22 14:22 06:22 RBC (4.30-5.90) m/uL Hgb (13.0-17.5) gm/dL Hct (39.0-53.0) % PT 12.2 H 13.6 H (9.0-12.0) sec INR 1.2 H 1.3 H (<1.2) Sodium 132 L (137-145) mmol/L Potassium 5.4 H (3.5-5.1) mmol/L BUN 34 H (9-20) mg/dL Creatinine 1.46 H (0.66-1.25) mg/dL 10/06/20 10/06/20 Range/Units 06:33 06:33 RBC 4.03 L (4.30-5.90) m/uL Hgb 12.5 L (13.0-17.5) gm/dL Hct 38.0 L (39.0-53.0) % PT (9.0-12.0) sec INR (<1.2) Sodium 132 L (137-145) mmol/L Potassium (3.5-5.1) mmol/L BUN 30 H (9-20) mg/dL Creatinine 1.48 H (0.66-1.25) mg/dL
[2020-10-06] MEDS: ATORVASTATIN 40 MG TAB PO SCH (21:39)
[2020-10-06] MEDS: LATANOPROST 0.005% OPHTH DROPS 2.5 ML BTL BOTH EYES SCH (21:39)
[2020-10-06] MEDS: MELATONIN 3 MG TABLET PO SCH (21:46)
[2020-10-07] MEDS: SODIUM CHLORIDE 0.9% 1,000 ML IV SCH (03:34)
[2020-10-07] MEDS: BUDESONIDE 1 MG/2 ML NEBU INHALATION SCH (07:45)
[2020-10-07 07:46] LABS: INR 1.6 (<1.2); Prothrombin Time 15.9 sec (9.0-12.0)
[2020-10-07 08:39] VITALS: BP 142/94; PULSE 108; RESP 16; TEMP 98
[2020-10-07] MEDS: FLUoxetine HCL 10 MG CAP PO SCH (08:45)
[2020-10-07] MEDS: TROSPIUM CHLORIDE 20 MG TABLET PO SCH (08:45)
[2020-10-07] MEDS: ENOXAPARIN 80 MG/0.8 ML SYRINGE SQ SCH (08:45)
[2020-10-07] MEDS: METOPROLOL TARTRATE 25 MG TAB PO SCH (08:45)
[2020-10-07] MEDS: MULTIVITAMINS, THERA 1 EACH TAB PO SCH (08:46)
[2020-10-07] MEDS: MAGNESIUM OXIDE 400 MG TAB PO SCH (08:46)
[2020-10-07] MEDS: PANTOPRAZOLE 40 MG TABLET PO SCH (08:46)
[2020-10-07] MEDS: ASPIRIN 81 MG PO SCH (08:46)
[2020-10-07] MEDS: DILTIAZEM CD 180 MG CAP.ER.24H PO SCH (08:47)
[2020-10-07] MEDS ORDERED: METOPROLOL TARTRATE 25 MG TAB PO STA (09:10)
[2020-10-07] MEDS ORDERED: amLODIPine 5 MG TAB PO SCH (09:15)
--- NOTE | 2020-10-07 09:55 | P.PN ---
Subjective Progress Note Date: 10/07/20 CHIEF COMPLAINT: Palpitations HISTORY OF PRESENT ILLNESS: 10/06/2020 This is a 84-year-old male with a past medical history significant for hypertension, hyperlipidemia, and atrial fibrillation on anticoagulation with Coumadin. Patient follows in the office with Dr. Pulliam. We have been asked to see the patient in consultation for atrial fib. Patient examined this morning at the bedside in the emergency room. Patient states he began having palpitations yesterday which prompted him to come to the emergency room for evaluation. He denies chest pain or pressure. He denies shortness of breath. Denies nausea or vomiting. Denies dizziness or lightheadedness. It is noted the patient was recently hospitalized at [facility] and September 2020 secondary to pneumonia and age of fibrillation. The patient was on mechanical ventilation at that time. The patient states he was "put back into a normal rhythm" by Dr. Priest during that hospitalization. No records are available at this time for review. 10/07/2020 Patient examined this morning at the bedside. He denies chest pain or pressure. Denies shortness of breath. INR 1.6. He is on Coumadin and Lovenox. Heart rate in the low 100s. Echocardiogram completed revealed ejection fraction 40-45%. PHYSICAL EXAM: VITAL SIGNS: Reviewed. GENERAL: Well-developed in no acute distress. HEENT: Head is normocephalic. Pupils are equal, round. Sclerae anicteric. Mucous membranes of the mouth are moist. Neck supple. No JVD or thyromegaly LUNGS: Respirations even and unlabored. Lungs diminished bilaterally HEART: Irregular rate and rhythm. S1 and S2 heard. Systolic murmur noted. ABDOMEN: Soft. Nondistended. Nontender. EXTREMITIES: Normal range of motion. No clubbing or cyanosis. Peripheral pulses intact. No lower extremity edema NEUROLOGIC: Awake and alert. Oriented x 3. ASSESSMENT: Palpitations Paroxysmal atrial fibrillation on anticoagulation with Coumadin Subtherapeutic INR Recent hospitalization secondary to pneumonia requiring mechanical ventilation Hypertension Hyperlipidemia PLAN: Increase metoprolol to 50 mg twice a day Decrease Cardizem to 120 mg daily Patient may be discharged home today from a cardiac standpoint. He is to continue with Lovenox injections for the next 2 days. Continue current dose of Coumadin. Patient to have his INR rechecked on Saturday. Nurse practitioner note has been reviewed by physician. Signing provider agrees with the documented findings, assessment, and plan of care. Objective - Vital Signs Vital signs: Vital Signs Temp 98.0 F 10/07/20 08:37 Pulse 108 H 10/07/20 08:37 Resp 16 10/07/20 08:37 BP 142/94 10/07/20 08:37 Pulse Ox 88 L 10/07/20 08:37 Intake & Output 10/06/20 10/07/20 10/07/20 18:59 06:59 18:59 Intake Total 300 Output Total 750 750 Balance -450 -750 Weight 77.111 kg Intake: Oral 300 Output: Urine 750 750 Other: Voiding Method Indwelling Catheter Indwelling Catheter Indwelling Catheter # Voids 1 - Labs CBC & Chem 7: 10/06/20 06:33 10/06/20 06:33 Labs: Abnormal Lab Results - Last 24 Hours (Table) 10/07/20 Range/Units 07:18 PT 15.9 H (9.0-12.0) sec INR 1.6 H (<1.2)
[2020-10-07] MEDS ORDERED: WARFARIN 2 MG TAB PO ONE (18:00)
[2020-10-07] MEDS ORDERED: METOPROLOL TARTRATE 50 MG TAB PO SCH (21:00)
[2020-10-08] MEDS ORDERED: DILTIAZEM CD 120 MG CAP.ER.24H PO SCH (09:00)
--- NOTE | 2020-10-08 17:14 | P.DS ---
Providers Date of admission: 10/05/20 15:39 Expected date of discharge: 10/07/20 Attending physician: Nestor Yeh Consults: 10/05/20 15:40 Consult Physician Urgent Consulting Provider: [facility] Consult Reason/Comments: pafib, subtheraputic inr Do you want consulting provider notified?: Yes [facility] care [facility] Course: Chief Complaint: Dizzy with palpitations History of presenting complaint: This is a 84-year-old patient of Dr. Cain Patton. Chronic stable medical conditions include abdominal aortic aneurysm 4.7 cm being followed by Dr. Park from vascular, hyperlipidemia, essential hypertension, coronary artery disease with prior [place] cognitive impairment from late-onset Alzheimer's dementia. Patient now presents with 1 day history of significant palpitations. Short of breath. Unable to walk. Dizzy. Heart it is better control by the time he was in the ER. Cardiology was consulted. Apparently patient was cardioverted at [facility] recently. Denies any chest pain. Feeling better this morning. Today-patient feeling much better. Back to his baseline. No cardiac symptoms. Medication adjusted. Cleared by cardiology. He will receive 2 days of overlapping Lovenox Consultation: [facility] Physical examination: VITAL SIGNS: 98.1, 76, 18, 10/22/1994, 96% room air GENERAL: BMI 27.4, laying in bed, comfortable. EYES: Pupils equal. Conjunctiva normal. HEENT: External appearance of nose and ears normal, oral cavity grossly normal. NECK: JVD not raised; masses not palpable. HEART: Irregular heart sounds; no edema. LUNGS: Respiratory rate normal; decreased breath sounds. ABDOMEN: Soft, nontender, liver spleen not palpable, no masses palpable. PSYCH: Able tonsil simple questions. INVESTIGATIONS, reviewed in the clinical context: October 07: INR 1.6 2-D echocardiogram-EF 40-45%. Severe mitral regurgitant White count 8.8 hemoglobin 12.5 platelets 358 potassium 5.1 bun 30 creatinine 1.48 EKG tracing personally reviewed by me-atrial fibrillation rate controlled Computed tomography scan of the brain-chronic changes with moderate diffuse ce rebral atrophy Chest x-ray film-personally reviewed by me: some scattered interstitial density Assessment: -Persistent atrial fibrillation with an episode of rapid ventricle rate symptomatic uncontrolled -Chronic kidney disease stage III likely nephrosclerosis -Hyperkalemia , on presentation -Abdominal aortic aneurysm a 4.7 cm-follow with Dr. Jesus vascular -Hyperlipidemia -Essential hypertension -Coronary artery disease with prior [place] -Moderate cognitive impairment likely from late-onset Alzheimer's dementia -Chronic congestive heart failure from systolic dysfunction EF 40-45% -Severe mitral regurgitation Disposition: Home Patient Condition at Discharge: Stable Plan - Discharge Summary Discharge Rx Participant: No New Discharge Prescriptions: New Diltiazem Cd [Cardizem CD] 120 mg PO DAILY #30 cap.er.24h Warfarin [Coumadin] 4 mg PO ONCE@1800 #60 tab Metoprolol Tartrate [Lopressor] 50 mg PO BID #60 tab Enoxaparin [Lovenox] 80 mg SQ BID #4 syringe Atorvastatin [Lipitor] 40 mg PO HS #30 tab Continue Multivitamin [Men's Multi-Vitamin] 1 tab PO DAILY Aspirin EC [Ecotrin Low Dose] 81 mg PO DAILY Acetaminophen [Tylenol] 1,000 mg PO Q8H PRN PRN Reason: Moderate Pain Budesonide [Pulmicort] 1 mg INHALATION RT-BID@0700,1900 Ipratropium-Albuterol Nebulize [Duoneb 0.5 mg-3 mg/3 ml Soln] 3 ml INHALATION RT-QID PRN PRN Reason: Shortness Of Breath Latanoprost/Pf [Latanoprost 0.005% Eye Drop] 1 drop BOTH EYES HS Magnesium Oxide [Magox 400] 400 mg PO DAILY Omeprazole [PriLOSEC] 20 mg PO BID Trospium Chloride 20 mg PO BID Spironolactone [Aldactone] 25 mg PO DAILY #30 tablet Melatonin 6 mg PO HS #0 Cyclobenzaprine [Flexeril] 5 mg PO TID PRN PRN Reason: Muscle Spasm FLUoxetine HCL [PROzac] 10 mg PO BID Discontinued Metoprolol Tartrate [Lopressor] 25 mg PO BID Diltiazem Cd [Cardizem CD] 180 mg PO DAILY Meloxicam 15 mg PO DAILY Warfarin [Coumadin] 2 mg PO HS #0 Atorvastatin [Lipitor] 40 mg PO HS lisinopriL 20 mg PO HS Discharge Medication List Aspirin EC [Ecotrin Low Dose] 81 mg PO DAILY 09/28/16 [History] Multivitamin [Men's Multi-Vitamin] 1 tab PO DAILY 09/28/16 [History] Acetaminophen [Tylenol] 1,000 mg PO Q8H PRN 09/16/20 [History] Budesonide [Pulmicort] 1 mg INHALATION RT-BID@0700,1900 09/16/20 [History] Ipratropium-Albuterol Nebulize [Duoneb 0.5 mg-3 mg/3 ml Soln] 3 ml INHALATION RT-QID PRN 09/16/20 [History] Latanoprost/Pf [Latanoprost 0.005% Eye Drop] 1 drop BOTH EYES HS 09/16/20 [History] Magnesium Oxide [Magox 400] 400 mg PO DAILY 09/16/20 [History] Omeprazole [PriLOSEC] 20 mg PO BID 09/16/20 [History] Trospium Chloride 20 mg PO BID 09/16/20 [History] Melatonin 6 mg PO HS #0 09/18/20 [Rx] Spironolactone [Aldactone] 25 mg PO DAILY #30 tablet 09/18/20 [Rx] Cyclobenzaprine [Flexeril] 5 mg PO TID PRN 10/05/20 [History] FLUoxetine HCL [PROzac] 10 mg PO BID 10/05/20 [History] Atorvastatin [Lipitor] 40 mg PO HS #30 tab 10/07/20 [Rx] Diltiazem Cd [Cardizem CD] 120 mg PO DAILY #30 cap.er.24h 10/07/20 [Rx] Enoxaparin [Lovenox] 80 mg SQ BID #4 syringe 10/07/20 [Rx] Metoprolol Tartrate [Lopressor] 50 mg PO BID #60 tab 10/07/20 [Rx] Warfarin [Coumadin] 4 mg PO ONCE@1800 #60 tab 10/07/20 [Rx] Follow up Appointment(s)/Referral(s): cardiology, [Other] - 2 Weeks Cain Patton MD [Primary Care Provider] - 1-2 days Activity/Diet/Wound Care/Special Instructions: bmp - 5 days Discharge Disposition: HOME SELF-CARE
== END 2020-10-07 13:49 | disposition home or self-care (01) ==
LOC: EC 13:32 → 1SOBS 15:39
PROVIDERS: ADMIT Hospitalist; ATTEND Hospitalist
DX: I48.19 Other persistent atrial fibrillation (principal); I13.0 Hypertensive heart and chronic kidney disease with heart failure and stage 1 through stage 4 chronic kidney disease, or unspecified chronic kidney disease; N18.30 Chronic kidney disease, stage 3 unspecified; I50.22 Chronic systolic (congestive) heart failure; T46.4X5A Adverse effect of angiotensin-converting-enzyme inhibitors, initial encounter; E87.5 Hyperkalemia; I71.4 Abdominal aortic aneurysm, without rupture; E78.5 Hyperlipidemia, unspecified; I25.10 Atherosclerotic heart disease of native coronary artery without angina pectoris; I25.2 Old myocardial infarction; G30.1 Alzheimer's disease with late onset; I34.0 Nonrheumatic mitral (valve) insufficiency; I34.1 Nonrheumatic mitral (valve) prolapse; Z90.81 Acquired absence of spleen; Z96.659 Presence of unspecified artificial knee joint; Z87.891 Personal history of nicotine dependence; Z87.01 Personal history of pneumonia (recurrent); G31.9 Degenerative disease of nervous system, unspecified; Z79.82 Long term (current) use of aspirin; Z79.51 Long term (current) use of inhaled steroids; Z79.899 Other long term (current) drug therapy; Z79.01 Long term (current) use of anticoagulants; Z88.5 Allergy status to narcotic agent; Z91.013 Allergy to seafood
CPT/HCPCS: 96372 ×4; 99285; 36415; 93005; 93306; 80053; 80048; 84443; 83735; 84484; 85025 ×2; 85610 ×3; 85730; 71046; 70450; G0378 ×3; J1650 ×3